=== PATIENT | male | born 1965 | race African-American/Black ===

== ENCOUNTER 2017-11-01 23:38 | Emergency (ER) | payer SELFPAY ==
[~2017-11-01] VITALS: Ht 185.4 cm; Wt 82.0 kg
[2017-11-02 01:25] LABS: BASOPHILS % 0.8 % (0.0-2.0); CHLORIDE 111 mEq/L (98-107); EOSINOPHILS % 0.7 % (0.0-5.0); HEMATOCRIT. 25.6 % (42.0-52.0); HEMOGLOBIN. 8.7 g/dL (14.0-18.0); LYMPHOCYTES % 18.1 % (20.0-50.0); MEAN CORPUSCULAR HEMOGLOBIN 34.2 pg (28.0-32.0); MEAN CORPUSCULAR VOLUME 100.4 fL (80.0-94.0); MEAN PLATELET VOLUME 6.5 fl (7.4-10.4); NEUTROPHILS % 75.4 % (40.0-76.0); PLATELET 282 x1000/uL (130-400); RED BLOOD CELL COUNT 2.55 mill/uL (4.7-6.1); RED CELL DISTRIBUTION WIDTH 13.3 % (11.6-14.6)
[2017-11-02 02:57] VITALS: BP 154/79
== END 2017-11-02 02:58 | disposition home or self-care (01) ==
LOC: ER 23:38
DX: E11.649 Type 2 diabetes mellitus with hypoglycemia without coma (principal)
CPT/HCPCS: 36415; 71045; 80053; 82962; 84484; 85025; 93005; 99285; Z7610

== ENCOUNTER 2018-10-07 23:41 | Inpatient (IN) | payer OTHER ==
[~2018-10-07] VITALS: Ht 188 cm; Wt 90.7 kg
[2018-10-08] MEDS ORDERED: ASPIRIN 81MG TABLET PO ONE
[2018-10-08] MEDS ORDERED: ONDANSETRON HCL 4MG/2ML INJ IV ONE (00:15)
[2018-10-08] MEDS ORDERED: MORPHINE SULFATE 4 MG/ML CPJ (NOT FOR IM USE) IV ONE (00:15)
[2018-10-08 00:52] LABS: BASOPHILS % 1.3 % (0.0-2.0); CHLORIDE 99 mEq/L (98-107); EOSINOPHILS % 0.3 % (0.0-5.0); HEMATOCRIT. 28.7 % (42.0-52.0); LYMPHOCYTES % 18.8 % (20.0-50.0); MEAN CORPUSCULAR HEMOGLOBIN 34.8 pg (28.0-32.0); MEAN CORPUSCULAR VOLUME 99.9 fL (80.0-94.0); MEAN PLATELET VOLUME 6.9 fl (7.4-10.4); MONOCYTES % 5.9 % (2.0-8.0); NEUTROPHILS % 73.7 % (40.0-76.0); PLATELET 412 x1000/uL (130-400); RED BLOOD CELL COUNT 2.87 mill/uL (4.7-6.1); RED CELL DISTRIBUTION WIDTH 12.3 % (11.6-14.6)
[2018-10-08] MEDS ORDERED: CLONIDINE 0.1MG TABLET PO ONE (04:30)
[2018-10-08] MEDS ORDERED: ONDANSETRON HCL 4MG/2ML INJ IV PRN (05:15)
[2018-10-08] MEDS ORDERED: CLONIDINE 0.1MG TABLET PO PRN (05:15)
[2018-10-08] MEDS ORDERED: DIPHENHYDRAMINE 50MG/ML VIAL IV PRN (05:15)
[2018-10-08] MEDS ORDERED: IPRATROPIUM/ALBUTEROL 0.5-3(2.5)MG/3ML NEB INH PRN (05:15)
[2018-10-08] MEDS ORDERED: ACETAMINOPHEN 325MG TABLET PO PRN (05:15)
[2018-10-08] MEDS ORDERED: MAGNESIUM/ALUMINUM HYDROXIDE/SIMETHICONE 30ML UDC PO PRN (05:15)
[2018-10-08] MEDS ORDERED: GUAIFENESIN 200MG/10ML SUGAR FREE UDC PO PRN (05:15)
[2018-10-08] MEDS ORDERED: SODIUM CHLORIDE 0.9% 1,000 ML IV ONE (08:14)
[2018-10-08] MEDS: LISINOPRIL 10MG TABLET PO SCH ×2 (09:51→21:12)
[2018-10-08] MEDS ORDERED: HYDRALAZINE 20MG/ML VIAL IV PRN (09:51)
[2018-10-08] MEDS ORDERED: ENOXAPARIN 30MG/0.3ML SYR SUBCUT ONE (09:53)
[2018-10-08] MEDS ORDERED: INSULIN LISPRO 100 UNITS/ML SUBCUT NR (10:20)
[2018-10-08] MEDS ORDERED: INSULIN GLARGINE UD 100 UNITS/ML SYR SUBCUT NR (10:45)
[2018-10-08] MEDS: AMLODIPINE 5MG TABLET PO SCH ×2 (10:49→21:12)
[2018-10-08] MEDS: ASPIRIN 81MG EC TABLET PO SCH (10:49)
[2018-10-08 11:29] LABS: CREATINE KINASE 497 IU/L (39-308)
[2018-10-08 14:09] LABS: T4 FREE 0.93 ng/dL (0.76-1.46)
[2018-10-08] MEDS ORDERED: INSULIN LISPRO 100 UNITS/ML SUBCUT ONE (16:00)
[2018-10-08 17:43] VITALS: BP 142/99
[2018-10-08] MEDS ORDERED: ASPI-1393 MT (18:30)
[2018-10-08] MEDS ORDERED: LEVVL SQ (18:30)
[2018-10-08] MEDS ORDERED: INSNPH SUBCUT (18:30)
[2018-10-08] MEDS ORDERED: LISI-186 MT (18:30)
[2018-10-08] MEDS ORDERED: HYDROCODONE/ACETAMINOPHEN 10/325MG TABLET PO PRN (19:00)
[2018-10-08] MEDS ORDERED: DEXTROSE 50% WATER 50ML SYRINGE IV PRN (19:00)
[2018-10-08 20:00] VITALS: BP 123/78
[2018-10-08] MEDS ORDERED: TEMAZEPAM 15MG CAPSULE PO PRN (20:30)
[2018-10-08] MEDS: INSULIN LISPRO 100 UNITS/ML SUBCUT SCH (21:00)
[2018-10-08] MEDS ORDERED: INSULIN LISPRO 100 UNITS/ML SUBCUT SCH (21:00)
[2018-10-08] MEDS: BLOOD SUGAR DIAGNOSTIC STRIP TEST SCH (21:12)
[2018-10-08] MEDS: SODIUM CHLORIDE 0.9% INJ 3ML FLUSH IVF SCH (21:12)
[2018-10-08] MEDS: INSULIN GLARGINE UD 100 UNITS/ML SYR SUBCUT SCH (21:31)
[2018-10-09] MEDS: INSULIN LISPRO 100 UNITS/ML SUBCUT SCH ×4 (06:56→21:00)
[2018-10-09] MEDS: BLOOD SUGAR DIAGNOSTIC STRIP TEST SCH ×4 (06:56→21:05)
[2018-10-09] MEDS: SODIUM CHLORIDE 0.9% INJ 3ML FLUSH IVF SCH ×3 (06:56→21:05)
[2018-10-09 08:00] VITALS: BP 135/81
[2018-10-09] MEDS ORDERED: KETOROLAC 30MG/ML VIAL IV ONE (08:15)
[2018-10-09] MEDS: ASPIRIN 81MG EC TABLET PO SCH (08:30)
[2018-10-09] MEDS ORDERED: NITROGLYCERIN OINT 1GM/INCH UDPKT TD NR (08:30)
[2018-10-09] MEDS: AMLODIPINE 5MG TABLET PO SCH ×2 (08:30→21:31)
[2018-10-09] MEDS: LISINOPRIL 10MG TABLET PO SCH ×2 (08:31→21:31)
[2018-10-09] MEDS: ENOXAPARIN 30MG/0.3ML SYR SUBCUT SCH (08:32)
[2018-10-09] MEDS ORDERED: KETOROLAC 15MG/ML VIAL IV NR (08:38)
[2018-10-09] MEDS ORDERED: FAMOTIDINE 20MG/2ML VIAL IV SCH ×2 (09:00)
[2018-10-09 09:29] LABS: CREATINE KINASE MB FRACTION 1.3 ng/mL (0.5-3.6)
[2018-10-09] MEDS: INSULIN GLARGINE UD 100 UNITS/ML SYR SUBCUT SCH ×2 (10:40→21:06)
[2018-10-09] MEDS ORDERED: ENOXAPARIN 30MG/0.3ML SYR SUBCUT SCH (11:00)
[2018-10-09 15:30] LABS: BASOPHILS % 0.4 % (0.0-2.0); EOSINOPHILS % 0.4 % (0.0-5.0); HEMATOCRIT. 28.5 % (42.0-52.0); HEMOGLOBIN. 9.5 g/dL (14.0-18.0); LYMPHOCYTES % 34.2 % (20.0-50.0); MEAN CORPUSCULAR VOLUME 101.7 fL (80.0-94.0); MONOCYTES % 5.3 % (2.0-8.0); NEUTROPHILS % 59.7 % (40.0-76.0); PLATELET 354 x1000/uL (130-400); RED CELL DISTRIBUTION WIDTH 12.5 % (11.6-14.6)
[2018-10-09 16:00] VITALS: BP 133/75
[2018-10-09] MEDS: SUCRALFATE 1 G/10 ML UDC PO SCH ×2 (16:29→21:05)
[2018-10-09] MEDS: PANTOPRAZOLE 40MG DR TABLET PO SCH (16:29)
[2018-10-09 17:11] LABS: ANTI-NUCLEAR ANTIBODIES DIRECT Negative (Negative)
[2018-10-09] MEDS ORDERED: KETOROLAC 30MG/ML VIAL IV PRN (19:15)
[2018-10-09 20:00] VITALS: BP 141/93
[2018-10-10 04:00] VITALS: BP 135/87
[2018-10-10] MEDS: SODIUM CHLORIDE 0.9% INJ 3ML FLUSH IVF SCH ×2 (05:55→14:57)
[2018-10-10] MEDS: BLOOD SUGAR DIAGNOSTIC STRIP TEST SCH ×3 (05:55→16:58)
[2018-10-10] MEDS: SUCRALFATE 1 G/10 ML UDC PO SCH ×3 (05:55→17:13)
[2018-10-10 07:11] LABS: BASOPHILS % 0.3 % (0.0-2.0); EOSINOPHILS % 1.3 % (0.0-5.0); HEMOGLOBIN. 9.2 g/dL (14.0-18.0); LYMPHOCYTES % 55.1 % (20.0-50.0); MEAN CORPUSCULAR HEMOGLOBIN 34.5 pg (28.0-32.0); MEAN CORPUSCULAR VOLUME 101.3 fL (80.0-94.0); MEAN PLATELET VOLUME 6.9 fl (7.4-10.4); MONOCYTES % 7.6 % (2.0-8.0); NEUTROPHILS % 35.7 % (40.0-76.0); PLATELET 328 x1000/uL (130-400); RED BLOOD CELL COUNT 2.66 mill/uL (4.7-6.1); RED CELL DISTRIBUTION WIDTH 12.6 % (11.6-14.6)
[2018-10-10] MEDS: INSULIN LISPRO 100 UNITS/ML SUBCUT SCH ×3 (07:15→17:15)
[2018-10-10 07:16] LABS: COMPLEMENT C3 150 mg/dL (82-167)
[2018-10-10 08:00] VITALS: BP 133/76
[2018-10-10] MEDS ORDERED: REGADENOSON 0.4 MG/5 ML IV SCH (08:15)
[2018-10-10] MEDS ORDERED: REGADENOSON 0.4 MG/5 ML IV ONE (09:52)
[2018-10-10] MEDS: ASPIRIN 81MG EC TABLET PO SCH (11:09)
[2018-10-10] MEDS: LISINOPRIL 10MG TABLET PO SCH (11:09)
[2018-10-10] MEDS: AMLODIPINE 5MG TABLET PO SCH (11:09)
[2018-10-10] MEDS: ENOXAPARIN 30MG/0.3ML SYR SUBCUT SCH (11:10)
[2018-10-10] MEDS: PANTOPRAZOLE 40MG DR TABLET PO SCH (11:10)
[2018-10-10] MEDS: INSULIN GLARGINE UD 100 UNITS/ML SYR SUBCUT SCH (11:42)
[2018-10-10 12:00] VITALS: BP 135/82
[2018-10-10 16:00] VITALS: BP 136/81
[2018-10-10 17:53] VITALS: BP 135/80
[2018-10-11] MEDS ORDERED: FAMOTIDINE 20MG TABLET PO SCH (09:00)
== END 2018-10-10 19:01 | disposition home or self-care (01) | DRG 469 ==
LOC: ER 23:41 → 5WST 10-08 02:32 → EDBEDREQTM 10-08 02:35 → EDBEDREQ 10-08 02:35 → CANRESERV 10-08 12:57 → ENRESERV 10-08 12:57
PROVIDERS: ADMIT Internal Medicine; ATTEND Internal Medicine
DX: N17.9 Acute kidney failure, unspecified (principal); E11.22 Type 2 diabetes mellitus with diabetic chronic kidney disease; E44.0 Moderate protein-calorie malnutrition; E11.319 Type 2 diabetes mellitus with unspecified diabetic retinopathy without macular edema; E78.00 Pure hypercholesterolemia, unspecified; R07.9 Chest pain, unspecified; I12.9 Hypertensive chronic kidney disease with stage 1 through stage 4 chronic kidney disease, or unspecified chronic kidney disease; N18.9 Chronic kidney disease, unspecified; R07.89 Other chest pain; K21.9 Gastro-esophageal reflux disease without esophagitis; E78.5 Hyperlipidemia, unspecified; D63.1 Anemia in chronic kidney disease; Z79.4 Long term (current) use of insulin; Z83.3 Family history of diabetes mellitus; Z82.49 Family history of ischemic heart disease and other diseases of the circulatory system; Z84.1 Family history of disorders of kidney and ureter; Z68.25 Body mass index [BMI] 25.0-25.9, adult
CPT/HCPCS: 36415; 71045; 76770; 78452; 78582; 80048; 80061; 82550; 82553; 82962; 83036; 83880; 84439; 84443; 84484; 85379; 86038; 86160; 93005; 93017; 93306; 93970; 96374; 96375; 99285; A9500; A9558; J1650; J1815; J1885; J2270; J2405; J2785; J3490; J7030

== ENCOUNTER 2018-11-08 19:57 | Inpatient (IN) | payer OTHER ==
[~2018-11-08] VITALS: Ht 193 cm; Wt 75.3 kg
[~2018-11-08 19:57] MED LIST: ASPI-1393 MT; INSNPH SUBCUT; LEVVL SQ; LISI-186 MT
[2018-11-08] MEDS ORDERED: CALCIUM GLUCONATE 100MG/ML 10ML VIAL IV ONE (21:15)
[2018-11-08 21:38] LABS: BASOPHILS % 1.6 % (0.0-2.0); EOSINOPHILS % 1.4 % (0.0-5.0); HEMATOCRIT. 23.2 % (42.0-52.0); HEMOGLOBIN. 7.9 g/dL (14.0-18.0); LYMPHOCYTES % 31.5 % (20.0-50.0); MEAN CORPUSCULAR HEMOGLOBIN 35.8 pg (28.0-32.0); MEAN CORPUSCULAR VOLUME 104.9 fL (80.0-94.0); MEAN PLATELET VOLUME 6.2 fl (7.4-10.4); MONOCYTES % 6.2 % (2.0-8.0); NEUTROPHILS % 59.3 % (40.0-76.0); PLATELET 342 x1000/uL (130-400); RED BLOOD CELL COUNT 2.21 mill/uL (4.7-6.1); RED CELL DISTRIBUTION WIDTH 13.9 % (11.6-14.6)
[2018-11-08 21:41] LABS: CHLORIDE 118 mEq/L (98-107)
[2018-11-08] MEDS ORDERED: DEXTROSE 50% WATER 50ML SYRINGE IV ONE ×3 (21:45→23:30)
[2018-11-08] MEDS ORDERED: INSULIN REGULAR (HUMULIN R) 300UNITS/3ML IV ONE (21:45)
[2018-11-08] MEDS ORDERED: SODIUM BICARBONATE 8.4% 1 MEQ/ML 50ML SYR IV ONE (21:45)
[2018-11-09] VITALS (10 sets, daily range): BP systolic 136–215; BP diastolic 64–122
[2018-11-09] MEDS ORDERED: DEXTROSE 50% WATER 50ML SYRINGE IV ONE ×2 (00:30)
[2018-11-09] MEDS ORDERED: GUAIFENESIN 200MG/10ML SUGAR FREE UDC PO PRN (04:45)
[2018-11-09] MEDS ORDERED: ONDANSETRON HCL 4MG/2ML INJ IV PRN (04:45)
[2018-11-09] MEDS ORDERED: MORPHINE SULFATE 2 MG/ML CPJ (NOT FOR IM USE) IV PRN (04:45)
[2018-11-09] MEDS ORDERED: DOCUSATE SODIUM 100MG CAPSULE PO PRN (04:45)
[2018-11-09] MEDS ORDERED: HYDROCODONE/ACETAMINOPHEN 5/325MG TABLET PO PRN (04:45)
[2018-11-09] MEDS ORDERED: ACETAMINOPHEN 325MG TABLET PO PRN (04:45)
[2018-11-09] MEDS: CLONIDINE 0.1MG TABLET PO PRN ×2 (05:17→23:00)
[2018-11-09] MEDS: DEXT 5%/0.45% NACL 1000ML 1,000 ML IV SCH ×2 (05:17→21:50)
[2018-11-09] MEDS ORDERED: SODIUM POLYSTYRENE SULFONATE 15 G/60 ML BOT PO SCH (06:00)
[2018-11-09] MEDS ORDERED: DEXTROSE 50% WATER 50ML SYRINGE IV PRN ×2 (06:15→07:45)
[2018-11-09] MEDS: BLOOD SUGAR DIAGNOSTIC STRIP TEST SCH ×4 (07:06→21:49)
[2018-11-09] MEDS: AMLODIPINE 10MG TABLET PO SCH (08:40)
[2018-11-09] MEDS: INSULIN LISPRO 100 UNITS/ML SUBCUT SCH ×4 (08:43→21:49)
[2018-11-09 09:25] LABS: CHLORIDE 116 mEq/L (98-107)
[2018-11-09 09:40] LABS: CREATINE KINASE 230 IU/L (39-308)
[2018-11-09 09:44] LABS: CREATINE KINASE MB FRACTION 3.1 ng/mL (0.5-3.6)
[2018-11-09] MEDS: HYDRALAZINE HCL 10MG TABLET PO SCH ×3 (11:06→21:49)
[2018-11-09] MEDS ORDERED: BLOOD SUGAR DIAGNOSTIC STRIP TEST SCH (12:30)
[2018-11-09] MEDS ORDERED: INSULIN REGULAR (HUMULIN R) 300UNITS/3ML IV NR (13:00)
[2018-11-09] MEDS ORDERED: DEXTROSE 50% WATER 50ML SYRINGE IV NR (13:00)
[2018-11-09] MEDS ORDERED: SODIUM POLYSTYRENE SULFONATE 15 G/60 ML BOT PO NR (13:30)
[2018-11-09] MEDS ORDERED: INSULIN REGULAR (HUMULIN R) UD 100 UNITS/ML SYR IV NR (14:41)
[2018-11-09 15:08] LABS: CLARITY URINE CLEAR (CLEAR); COLOR URINE YELLOW (YELLOW); KETONES URINE NEGATIVE (NEGATIVE); LEUKOCYTE ESTERASE URINE NEGATIVE (NEGATIVE); NITRITE URINE NEGATIVE (NEGATIVE); OCCULT BLOOD URINE TRACE (NEGATIVE); PROTEIN URINE 2+ (NEGATIVE); SPECIFIC GRAVITY URINE 1.014 (1.005-1.030); UROBILINOGEN URINE 0.2 E.U./dL (0.2-1.0)
[2018-11-09 15:31] LABS: CREATINE KINASE MB FRACTION 2.3 ng/mL (0.5-3.6)
[2018-11-09 15:38] LABS: *AMPHETAMINES SCREEN URINE NEGATIVE (NEGATIVE); *BARBITURATES SCREEN URINE NEGATIVE (NEGATIVE)
[2018-11-09 15:39] LABS: *BENZODIAZEPINES SCREEN URINE NEGATIVE (NEGATIVE); *COCAINE SCREEN URINE NEGATIVE (NEGATIVE); CANNABINOID URINE SCREEN PRESUMTIVE POSITIVE (NEGATIVE); METHADONE URINE SCREEN NEGATIVE (NEGATIVE); OPIATES URINE SCREEN NEGATIVE (NEGATIVE); PHENCYCLIDINE URINE SCREEN NEGATIVE (NEGATIVE)
[2018-11-09] MEDS ORDERED: INSULIN GLARGINE UD 100 UNITS/ML SYR SUBCUT NR (22:30)
[2018-11-10] VITALS (10 sets, daily range): BP systolic 116–170; BP diastolic 72–98
[2018-11-10] MEDS: HYDRALAZINE HCL 10MG TABLET PO SCH ×2 (05:39→13:45)
[2018-11-10] MEDS: BLOOD SUGAR DIAGNOSTIC STRIP TEST SCH ×2 (06:34→12:30)
[2018-11-10 07:10] LABS: BASOPHILS % 1.1 % (0.0-2.0); EOSINOPHILS % 1.6 % (0.0-5.0); HEMATOCRIT. 23.7 % (42.0-52.0); HEMOGLOBIN. 7.9 g/dL (14.0-18.0); LYMPHOCYTES % 35.6 % (20.0-50.0); MEAN CORPUSCULAR HEMOGLOBIN 34.6 pg (28.0-32.0); MEAN CORPUSCULAR VOLUME 103.4 fL (80.0-94.0); MEAN PLATELET VOLUME 6.6 fl (7.4-10.4); MONOCYTES % 7.2 % (2.0-8.0); NEUTROPHILS % 54.5 % (40.0-76.0); PLATELET 358 x1000/uL (130-400); RED BLOOD CELL COUNT 2.29 mill/uL (4.7-6.1); RED CELL DISTRIBUTION WIDTH 13.7 % (11.6-14.6)
[2018-11-10] MEDS: INSULIN LISPRO 100 UNITS/ML SUBCUT SCH ×4 (07:30→13:38)
[2018-11-10 07:38] LABS: CHLORIDE 116 mEq/L (98-107)
[2018-11-10 07:51] LABS: HDL CHOLESTEROL 73 mg/dL (40-59)
[2018-11-10 07:52] LABS: LDL CHOLESTEROL 108 mg/dL (5-100)
[2018-11-10] MEDS: AMLODIPINE 10MG TABLET PO SCH (09:00)
[2018-11-10] MEDS ORDERED: INSULIN LISPRO 100 UNITS/ML SUBCUT SCH (09:00)
[2018-11-10] MEDS: DEXT 5%/0.45% NACL 1000ML 1,000 ML IV SCH (14:21)
== END 2018-11-10 16:30 | disposition home or self-care (01) | DRG 683 ==
LOC: ER 19:57 → 5EST 11-09 01:13 → EDBEDREQDT 11-09 01:16 → EDBEDREQSVC 11-09 01:16 → EDBEDREQ 11-09 01:16 → EDBEDREQTM 11-09 01:16 → ENRESERV 11-09 02:20 → 5EST 11-09 03:58
PROVIDERS: ADMIT Hospitalist; ATTEND Hospitalist
DX: N17.9 Acute kidney failure, unspecified (principal); E87.2 Acidosis; I12.9 Hypertensive chronic kidney disease with stage 1 through stage 4 chronic kidney disease, or unspecified chronic kidney disease; E87.5 Hyperkalemia; N18.4 Chronic kidney disease, stage 4 (severe); E11.22 Type 2 diabetes mellitus with diabetic chronic kidney disease; E11.649 Type 2 diabetes mellitus with hypoglycemia without coma; E88.81 Metabolic syndrome and other insulin resistance; I51.7 Cardiomegaly; R74.0 Nonspecific elevation of levels of transaminase and lactic acid dehydrogenase [LDH]; Z79.899 Other long term (current) drug therapy
CPT/HCPCS: 36415; 71045; 80061; 80305; 82550; 82553; 82962; 83880; 84132; 84484; 93005; 93970; 96374; 96375; 96376; 99291; J0610; J1815; J3490

== ENCOUNTER 2019-03-13 13:02 | Inpatient (IN) | payer OTHER ==
[~2019-03-13] VITALS: Ht 193 cm; Wt 72.6 kg
[2019-03-13] MEDS ORDERED: SODIUM CHLORIDE 0.9% 1,000 ML IV ONE (13:35)
[2019-03-13 14:41] LABS: CHLORIDE 105 mEq/L (98-107)
[2019-03-13 14:42] LABS: BASOPHILS % 0.7 % (0.0-2.0); EOSINOPHILS % 1.1 % (0.0-5.0); HEMOGLOBIN. 8.6 g/dL (14.0-18.0); LYMPHOCYTES % 31.1 % (20.0-50.0); MEAN CORPUSCULAR HEMOGLOBIN 34.9 pg (28.0-32.0); MEAN PLATELET VOLUME 7.3 fl (7.4-10.4); MONOCYTES % 4.9 % (2.0-8.0); NEUTROPHILS % 62.2 % (40.0-76.0); PLATELET 265 x1000/uL (130-400); RED BLOOD CELL COUNT 2.46 mill/uL (4.7-6.1); RED CELL DISTRIBUTION WIDTH 13.8 % (11.6-14.6)
[2019-03-13 14:46] LABS: AMYLASE 77 IU/L (25-115)
[2019-03-13 14:56] LABS: BETA HYDROXYBUTYRATE 0.1 mMol/L (0.0-0.3)
[2019-03-13] MEDS ORDERED: ASPIRIN 325MG EC TABLET PO ONE (15:15)
[2019-03-13] MEDS ORDERED: INSULIN REGULAR (HUMULIN R) UD 100 UNITS/ML SYR SUBCUT ONE (15:15)
[2019-03-13 15:24] LABS: BG BASE EXCESS -5.5 mmol/L (-2.0-2.0); BG CARBOXYHEMOGLOBIN 0.1 % (0.5-1.5); BG FRACTION INSPIRED OXYGEN 21; BG HCO3 ACT 20.2 mmol/L (22.0-26.0); BG METHEMOGLOBIN 0.1 % (0.0-1.5); BG OXYHEMOGLOBIN 91.8 % (94.0-97.0); BG PCO2 40.1 mmHg (35.0-45.0); BG PH 7.319 (7.350-7.450); BG PO2 65.7 mmHg (75.0-100.0); BG SAMPLE SITE RIGHT BRACHIAL; BG TOTAL HEMOGLOBIN 9.2 g/dL (12.0-18.0); BG VENT MODE ROOM AIR
[2019-03-13 15:32] LABS: CLARITY URINE CLEAR (CLEAR); COLOR URINE YELLOW (YELLOW); KETONES URINE NEGATIVE (NEGATIVE); LEUKOCYTE ESTERASE URINE NEGATIVE (NEGATIVE); NITRITE URINE NEGATIVE (NEGATIVE); OCCULT BLOOD URINE TRACE (NEGATIVE); PROTEIN URINE 2+ (NEGATIVE); SPECIFIC GRAVITY URINE 1.018 (1.005-1.030); UROBILINOGEN URINE 0.2 E.U./dL (0.2-1.0)
[2019-03-13 15:42] LABS: PROTHROMBIN TIME 9.8 sec (9.6-11.0)
[2019-03-13 15:43] LABS: ETHANOL BLOOD < 10 mg/dL
[2019-03-13] MEDS ORDERED: TRAMADOL 50MG TABLET PO PRN (18:00)
[2019-03-13] MEDS ORDERED: DEXTROSE 50% WATER 50ML SYRINGE IV PRN (18:00)
[2019-03-13] MEDS ORDERED: LORAZEPAM 0.5MG TABLET PO PRN (18:00)
[2019-03-13] MEDS ORDERED: IPRATROPIUM/ALBUTEROL 0.5-3(2.5)MG/3ML NEB NEB PRN (18:00)
[2019-03-13] MEDS ORDERED: MAGNESIUM/ALUMINUM HYDROXIDE/SIMETHICONE 30ML UDC PO PRN (18:00)
[2019-03-13] MEDS ORDERED: DOCUSATE SODIUM 100MG CAPSULE PO PRN (18:00)
[2019-03-13] MEDS ORDERED: ONDANSETRON HCL 4MG/2ML INJ IV PRN (18:00)
[2019-03-13] MEDS ORDERED: ACETAMINOPHEN 325MG TABLET PO PRN (18:00)
[2019-03-13] MEDS ORDERED: ENOXAPARIN 40MG/0.4ML SYR SUBCUT SCH (18:00)
[2019-03-13] MEDS ORDERED: GUAIFENESIN 200MG/10ML SUGAR FREE UDC PO PRN (18:00)
[2019-03-13] MEDS ORDERED: NITROGLYCERIN 0.4MG TABLET SL SL PRN (18:00)
[2019-03-13 19:48] LABS: T4 FREE 0.79 ng/dL (0.76-1.46)
[2019-03-13 20:11] LABS: HEPATITIS B SURFACE ANTIGEN NEGATIVE; VITAMIN B12 SERUM >2000 pg/mL pg/mL (211-911)
[2019-03-13 20:40] LABS: HEPATITIS A AB IGM NEGATIVE (NEGATIVE)
[2019-03-13] MEDS: CLONIDINE 0.1MG TABLET PO PRN (21:50)
[2019-03-13] MEDS ORDERED: ZOLPIDEM TARTRATE 5MG TABLET PO PRN (23:14)
[2019-03-13] MEDS ORDERED: SODIUM CHLORIDE 0.9% 1,000 ML IV SCH (23:16)
[2019-03-14] VITALS: BP 176/104
[2019-03-14] MEDS ORDERED: INSULIN GLARGINE UD 100 UNITS/ML SYR SUBCUT SCH
[2019-03-14] MEDS ORDERED: METOPROLOL TARTRATE 25MG TABLET PO SCH
[2019-03-14] MEDS: BLOOD SUGAR DIAGNOSTIC STRIP TEST SCH ×2 (00:05→06:06)
[2019-03-14] MEDS ORDERED: LEVVL SQ (01:22)
[2019-03-14 04:00] VITALS: BP 177/111
[2019-03-14] MEDS: CLONIDINE 0.1MG TABLET PO PRN (06:13)
[2019-03-14] MEDS: INSULIN LISPRO 100 UNITS/ML SUBCUT SCH ×2 (06:20)
[2019-03-14 07:18] LABS: BASOPHILS % 0.8 % (0.0-2.0); EOSINOPHILS % 2.8 % (0.0-5.0); HEMATOCRIT. 26.7 % (42.0-52.0); HEMOGLOBIN. 8.9 g/dL (14.0-18.0); LYMPHOCYTES % 38.6 % (20.0-50.0); MEAN CORPUSCULAR HEMOGLOBIN 34.9 pg (28.0-32.0); MEAN CORPUSCULAR VOLUME 104.7 fL (80.0-94.0); MEAN PLATELET VOLUME 7.5 fl (7.4-10.4); MONOCYTES % 4.8 % (2.0-8.0); PLATELET 263 x1000/uL (130-400); RED BLOOD CELL COUNT 2.55 mill/uL (4.7-6.1)
[2019-03-14] MEDS ORDERED: INSULIN LISPRO 100 UNITS/ML SUBCUT SCH (07:40)
[2019-03-14 07:44] LABS: CHLORIDE 109 mEq/L (98-107)
[2019-03-14 08:00] VITALS: BP 142/98
[2019-03-14] MEDS ORDERED: ENOXAPARIN 80MG/0.8ML SYR SUBCUT SCH (08:00)
[2019-03-14] MEDS ORDERED: ENOXAPARIN 30MG/0.3ML SYR SUBCUT SCH (09:00)
[2019-03-14] MEDS ORDERED: ASPIRIN 325MG EC TABLET PO SCH (09:00)
[2019-03-14] MEDS ORDERED: ASCORBIC ACID 500 MG TABLET PO SCH (09:00)
[2019-03-14] MEDS ORDERED: FAMOTIDINE 20MG TABLET PO SCH ×2 (09:00)
[2019-03-14 14:21] LABS: *AMPHETAMINES SCREEN URINE NEGATIVE (NEGATIVE); *BARBITURATES SCREEN URINE NEGATIVE (NEGATIVE); *BENZODIAZEPINES SCREEN URINE NEGATIVE (NEGATIVE); *COCAINE SCREEN URINE NEGATIVE (NEGATIVE)
[2019-03-14 14:22] LABS: CANNABINOID URINE SCREEN PRESUMTIVE POSITIVE (NEGATIVE); METHADONE URINE SCREEN NEGATIVE (NEGATIVE); OPIATES URINE SCREEN NEGATIVE (NEGATIVE); PHENCYCLIDINE URINE SCREEN NEGATIVE (NEGATIVE)
== END 2019-03-14 08:50 | disposition left against medical advice (07) | DRG 872 ==
LOC: ER 13:02 → 7WST 15:51 → EDBEDREQ 16:12 → EDBEDREQTM 16:33 → SUPCPDRO 18:15 → ENRESERV 21:34
PROVIDERS: ADMIT Internal Medicine; ATTEND Internal Medicine
DX: A41.9 Sepsis, unspecified organism (principal); N17.9 Acute kidney failure, unspecified; E87.1 Hypo-osmolality and hyponatremia; E10.22 Type 1 diabetes mellitus with diabetic chronic kidney disease; N18.9 Chronic kidney disease, unspecified; I12.9 Hypertensive chronic kidney disease with stage 1 through stage 4 chronic kidney disease, or unspecified chronic kidney disease; E87.5 Hyperkalemia; Z53.29 Procedure and treatment not carried out because of patient's decision for other reasons; Z91.14 Patient's other noncompliance with medication regimen; Z79.899 Other long term (current) drug therapy; Z79.82 Long term (current) use of aspirin; Z79.4 Long term (current) use of insulin
CPT/HCPCS: 36415; 36600; 71045; 76705; 80061; 80305; 80307; 80320; 81003; 82010; 82150; 82375; 82607; 82746; 82805; 82962; 83036; 83540; 83550; 84439; 84443; 84484; 86705; 86709; 86803; 87340; 93005; 93970; 96360; 96372; 99285; J1815; J7030; G0480

== ENCOUNTER 2019-04-01 14:27 | Inpatient (IN) | payer OTHER ==
[~2019-04-01] VITALS: Ht 193 cm; Wt 83.9 kg
[~2019-04-01 14:27] MED LIST changes: -ASPI-1393 MT; +ASPI-1393 PO
[2019-04-01] MEDS ORDERED: SODIUM CHLORIDE 0.9% 1,000 ML IV ONE (15:42)
[2019-04-01] MEDS ORDERED: AMLODIPINE 5MG TABLET PO ONE (15:45)
[2019-04-01 15:59] LABS: BASOPHILS % 1.9 % (0.0-2.0); EOSINOPHILS % 0.7 % (0.0-5.0); HEMATOCRIT. 22.7 % (42.0-52.0); HEMOGLOBIN. 7.4 g/dL (14.0-18.0); LYMPHOCYTES % 25.5 % (20.0-50.0); MEAN CORPUSCULAR HEMOGLOBIN 35.7 pg (28.0-32.0); MEAN CORPUSCULAR VOLUME 108.7 fL (80.0-94.0); MEAN PLATELET VOLUME 7.2 fl (7.4-10.4); MONOCYTES % 6.3 % (2.0-8.0); NEUTROPHILS % 65.6 % (40.0-76.0); PLATELET 289 x1000/uL (130-400); RED BLOOD CELL COUNT 2.08 mill/uL (4.7-6.1); RED CELL DISTRIBUTION WIDTH 14.1 % (11.6-14.6)
[2019-04-01 16:02] LABS: CHLORIDE 111 mEq/L (98-107)
[2019-04-01] MEDS ORDERED: CALCIUM GLUCONATE 1,000 MG in DEXT 5% WATER 100 ML IV ONE (16:30)
[2019-04-01] MEDS ORDERED: DEXTROSE 50% WATER 50ML SYRINGE IV ONE (16:30)
[2019-04-01] MEDS ORDERED: ALBUTEROL (0.083%) 2.5MG/3ML NEB HHN ONE (16:30)
[2019-04-01] MEDS ORDERED: INSULIN REGULAR (HUMULIN R) 300UNITS/3ML IV ONE (16:30)
[2019-04-01] MEDS ORDERED: SODIUM BICARBONATE 8.4% 1 MEQ/ML 50ML SYR IV ONE (16:30)
[2019-04-01] MEDS ORDERED: LORAZEPAM 0.5MG TABLET PO PRN (17:30)
[2019-04-01] MEDS ORDERED: ACETAMINOPHEN 325MG TABLET PO PRN (17:30)
[2019-04-01] MEDS ORDERED: ONDANSETRON HCL 4MG/2ML INJ IV PRN (17:30)
[2019-04-01] MEDS ORDERED: ENOXAPARIN 80MG/0.8ML SYR SUBCUT ONE (17:30)
[2019-04-01] MEDS ORDERED: IPRATROPIUM/ALBUTEROL 0.5-3(2.5)MG/3ML NEB NEB PRN (17:30)
[2019-04-01] MEDS ORDERED: GUAIFENESIN 200MG/10ML SUGAR FREE UDC PO PRN (17:30)
[2019-04-01] MEDS ORDERED: NITROGLYCERIN 0.4MG TABLET SL SL PRN (17:30)
[2019-04-01] MEDS ORDERED: DOCUSATE SODIUM 100MG CAPSULE PO PRN (17:30)
[2019-04-01] MEDS ORDERED: MAGNESIUM/ALUMINUM HYDROXIDE/SIMETHICONE 30ML UDC PO PRN (17:30)
[2019-04-01] MEDS ORDERED: SODIUM POLYSTYRENE SULFONATE 15 G/60 ML BOT PO NR (17:42)
[2019-04-01] MEDS ORDERED: INSULIN REGULAR (HUMULIN R) UD 100 UNITS/ML SYR IV ONE (18:15)
[2019-04-01 18:36] LABS: *AMPHETAMINES SCREEN URINE NEGATIVE (NEGATIVE); *BARBITURATES SCREEN URINE NEGATIVE (NEGATIVE); *BENZODIAZEPINES SCREEN URINE NEGATIVE (NEGATIVE); *COCAINE SCREEN URINE NEGATIVE (NEGATIVE)
[2019-04-01 18:37] LABS: CANNABINOID URINE SCREEN PRESUMTIVE POSITIVE (NEGATIVE); METHADONE URINE SCREEN NEGATIVE (NEGATIVE); OPIATES URINE SCREEN NEGATIVE (NEGATIVE); PHENCYCLIDINE URINE SCREEN NEGATIVE (NEGATIVE)
[2019-04-01 20:05] LABS: FOLIC ACID (FOLATE) SERUM 8.4 ng/mL (>5.38)
[2019-04-01] MEDS: INSULIN LISPRO 100 UNITS/ML SUBCUT SCH ×2 (20:28)
[2019-04-01] MEDS: TRAMADOL 50MG TABLET PO PRN (20:56)
[2019-04-01] MEDS ORDERED: ZOLPIDEM TARTRATE 5MG TABLET PO PRN (21:00)
[2019-04-01 22:00] VITALS: BP 160/89
[2019-04-01 23:24] VITALS: BP 170/107
[2019-04-02] VITALS (12 sets, daily range): BP systolic 148–183; BP diastolic 75–109
[2019-04-02 00:01] LABS: CREATINE KINASE MB FRACTION 3.4 ng/mL (0.5-3.6)
[2019-04-02] MEDS: DEXTROSE 50% WATER 50ML SYRINGE IV PRN ×2 (00:02→07:01)
[2019-04-02] MEDS: BLOOD SUGAR DIAGNOSTIC STRIP TEST SCH ×5 (00:07→20:59)
[2019-04-02] MEDS: CLONIDINE 0.1MG TABLET PO PRN ×2 (01:27→17:48)
[2019-04-02] MEDS: INSULIN GLARGINE UD 100 UNITS/ML SYR SUBCUT SCH ×2 (01:28→22:44)
[2019-04-02] MEDS: TRAMADOL 50MG TABLET PO PRN (06:31)
[2019-04-02] MEDS: APIXABAN 2.5 MG TABLET PO SCH ×2 (06:39→17:48)
[2019-04-02] MEDS: INSULIN LISPRO 100 UNITS/ML SUBCUT SCH ×4 (07:20→21:02)
[2019-04-02] MEDS: METOPROLOL TARTRATE 25MG TABLET PO SCH ×2 (08:33→20:58)
[2019-04-02] MEDS ORDERED: FUROSEMIDE 40MG/4ML VIAL IVP SCH (09:00)
[2019-04-02 09:09] LABS: BASOPHILS % 1.3 % (0.0-2.0); EOSINOPHILS % 1.1 % (0.0-5.0); LYMPHOCYTES % 30.5 % (20.0-50.0); MEAN CORPUSCULAR HEMOGLOBIN 35.6 pg (28.0-32.0); MEAN CORPUSCULAR VOLUME 106.4 fL (80.0-94.0); NEUTROPHILS % 59.1 % (40.0-76.0); PLATELET 295 x1000/uL (130-400); RED BLOOD CELL COUNT 1.96 mill/uL (4.7-6.1); RED CELL DISTRIBUTION WIDTH 13.8 % (11.6-14.6)
[2019-04-02 09:21] LABS: CHLORIDE 115 mEq/L (98-107); HEMATOCRIT. 20.9 % (42.0-52.0)
[2019-04-02 09:30] LABS: CREATINE KINASE 260 IU/L (39-308)
[2019-04-02 09:33] LABS: CREATINE KINASE MB FRACTION 2.5 ng/mL (0.5-3.6)
[2019-04-02 19:10] LABS: CLARITY URINE CLEAR (CLEAR); COLOR URINE YELLOW (YELLOW); KETONES URINE NEGATIVE (NEGATIVE); LEUKOCYTE ESTERASE URINE NEGATIVE (NEGATIVE); NITRITE URINE NEGATIVE (NEGATIVE); OCCULT BLOOD URINE TRACE (NEGATIVE); PH URINE 5.5 (4.5-8.0); PROTEIN URINE 2+ (NEGATIVE); SPECIFIC GRAVITY URINE 1.011 (1.005-1.030); UROBILINOGEN URINE 0.2 E.U./dL (0.2-1.0)
[2019-04-02] MEDS ORDERED: EPOETIN ALFA 4000UNITS/ML VIAL SUBCUT SCH (21:00)
[2019-04-03] VITALS (13 sets, daily range): BP systolic 141–180; BP diastolic 54–114
[2019-04-03] MEDS: CLONIDINE 0.1MG TABLET PO PRN ×2 (01:23→11:46)
[2019-04-03] MEDS: DEXTROSE 50% WATER 50ML SYRINGE IV PRN (04:56)
[2019-04-03] MEDS: BLOOD SUGAR DIAGNOSTIC STRIP TEST SCH ×4 (06:46→21:00)
[2019-04-03] MEDS: APIXABAN 2.5 MG TABLET PO SCH ×2 (06:46→18:00)
[2019-04-03 07:07] LABS: BASOPHILS % 0.4 % (0.0-2.0); EOSINOPHILS % 1.4 % (0.0-5.0); HEMATOCRIT. 21.7 % (42.0-52.0); HEMOGLOBIN. 7.4 g/dL (14.0-18.0); LYMPHOCYTES % 28.1 % (20.0-50.0); MEAN CORPUSCULAR HEMOGLOBIN 35.9 pg (28.0-32.0); MEAN CORPUSCULAR VOLUME 105.4 fL (80.0-94.0); MEAN PLATELET VOLUME 7.2 fl (7.4-10.4); MONOCYTES % 7.8 % (2.0-8.0); NEUTROPHILS % 62.3 % (40.0-76.0); PLATELET 320 x1000/uL (130-400); RED BLOOD CELL COUNT 2.05 mill/uL (4.7-6.1); RED CELL DISTRIBUTION WIDTH 13.9 % (11.6-14.6)
[2019-04-03] MEDS: INSULIN LISPRO 100 UNITS/ML SUBCUT SCH ×4 (07:20→21:00)
[2019-04-03 07:21] LABS: PHOSPHORUS 3.9 mg/dL (2.5-4.9)
[2019-04-03] MEDS: METOPROLOL TARTRATE 25MG TABLET PO SCH ×2 (08:04→21:00)
[2019-04-03] MEDS: FUROSEMIDE 40MG TABLET PO SCH (08:04)
[2019-04-03] MEDS ORDERED: MAGNESIUM 4 G PREMIX 100 ML IV SCH (08:30)
[2019-04-03] MEDS: DEXT 5%/0.9% NACL 1,000 ML IV SCH (10:00)
[2019-04-03] MEDS ORDERED: INSULIN GLARGINE UD 100 UNITS/ML SYR SUBCUT SCH (22:00)
[2019-04-04] MEDS: DEXT 5%/0.9% NACL 1,000 ML IV SCH (04:00)
[2019-04-04 06:34] LABS: BASOPHILS % 0.8 % (0.0-2.0); HEMATOCRIT. 23.1 % (42.0-52.0); HEMOGLOBIN. 7.7 g/dL (14.0-18.0); LYMPHOCYTES % 36.8 % (20.0-50.0); MEAN CORPUSCULAR HEMOGLOBIN 34.9 pg (28.0-32.0); MEAN CORPUSCULAR VOLUME 104.5 fL (80.0-94.0); MEAN PLATELET VOLUME 6.8 fl (7.4-10.4); MONOCYTES % 7.1 % (2.0-8.0); NEUTROPHILS % 54.3 % (40.0-76.0); PLATELET 353 x1000/uL (130-400); RED BLOOD CELL COUNT 2.22 mill/uL (4.7-6.1); RED CELL DISTRIBUTION WIDTH 13.8 % (11.6-14.6)
[2019-04-04 07:03] LABS: PHOSPHORUS 3.9 mg/dL (2.5-4.9)
[2019-04-04] MEDS: BLOOD SUGAR DIAGNOSTIC STRIP TEST SCH (07:05)
[2019-04-04] MEDS: INSULIN LISPRO 100 UNITS/ML SUBCUT SCH (07:20)
[2019-04-04 08:13] VITALS: BP 138/86
[2019-04-04] MEDS: FUROSEMIDE 40MG TABLET PO SCH (08:28)
[2019-04-04] MEDS: METOPROLOL TARTRATE 25MG TABLET PO SCH (08:29)
[2019-04-04] MEDS ORDERED: DEXTROSE 50% WATER 50ML SYRINGE IV PRN (08:30)
[2019-04-04 09:37] VITALS: BP 124/76
[2019-04-04 10:00] VITALS: BP 124/86
[2019-04-04] MEDS ORDERED: INSULIN GLARGINE UD 100 UNITS/ML SYR SUBCUT SCH (10:00)
[2019-04-04] MEDS ORDERED: BLOOD SUGAR DIAGNOSTIC STRIP TEST SCH (11:50)
[2019-04-04] MEDS ORDERED: INSULIN LISPRO 100 UNITS/ML SUBCUT SCH (12:20)
== END 2019-04-04 10:56 | disposition home or self-care (01) | DRG 682 ==
LOC: ER 14:27 → 3WST 17:23 → ENRESERV 20:21
PROVIDERS: ADMIT Internal Medicine; ATTEND Internal Medicine
DX: N17.0 Acute kidney failure with tubular necrosis (principal); E11.00 Type 2 diabetes mellitus with hyperosmolarity without nonketotic hyperglycemic-hyperosmolar coma (NKHHC); E44.0 Moderate protein-calorie malnutrition; I82.502 Chronic embolism and thrombosis of unspecified deep veins of left lower extremity; N18.4 Chronic kidney disease, stage 4 (severe); E11.65 Type 2 diabetes mellitus with hyperglycemia; E83.42 Hypomagnesemia; I12.9 Hypertensive chronic kidney disease with stage 1 through stage 4 chronic kidney disease, or unspecified chronic kidney disease; E87.5 Hyperkalemia; E11.22 Type 2 diabetes mellitus with diabetic chronic kidney disease; D63.8 Anemia in other chronic diseases classified elsewhere; Z79.899 Other long term (current) drug therapy; Z79.4 Long term (current) use of insulin; Z82.49 Family history of ischemic heart disease and other diseases of the circulatory system; Z83.3 Family history of diabetes mellitus; Z68.22 Body mass index [BMI] 22.0-22.9, adult; Z79.82 Long term (current) use of aspirin; Z91.11 Patient's noncompliance with dietary regimen; Z91.14 Patient's other noncompliance with medication regimen
CPT/HCPCS: 36415; 71045; 76770; 80048; 80061; 80305; 81003; 82550; 82553; 82607; 82746; 82962; 83010; 83036; 83540; 83550; 83615; 83735; 83880; 84100; 84484; 93005; 93970; 94640; 99291; J0610; J0885; J1650; J1815; J1940; J3475; J3490; J7030; J7042; J7060; J7611

== ENCOUNTER 2019-04-08 10:19 | Inpatient (IN) | payer OTHER ==
[~2019-04-08] VITALS: Ht 193 cm; Wt 78.9 kg
[2019-04-08 12:43] LABS: BASOPHILS % 0.9 % (0.0-2.0); EOSINOPHILS % 0.7 % (0.0-5.0); LYMPHOCYTES % 16.2 % (20.0-50.0); MEAN CORPUSCULAR HEMOGLOBIN 35.6 pg (28.0-32.0); MEAN CORPUSCULAR VOLUME 110.3 fL (80.0-94.0); MONOCYTES % 4.3 % (2.0-8.0); NEUTROPHILS % 77.9 % (40.0-76.0); PLATELET 386 x1000/uL (130-400); RED BLOOD CELL COUNT 1.71 mill/uL (4.7-6.1); RED CELL DISTRIBUTION WIDTH 14.3 % (11.6-14.6)
[2019-04-08] MEDS ORDERED: ACETAMINOPHEN 325MG TABLET PO ONE (12:45)
[2019-04-08 12:47] LABS: CHLORIDE 121 mEq/L (98-107)
[2019-04-08 12:55] LABS: HEMATOCRIT. 18.9 % (42.0-52.0); HEMOGLOBIN. 6.1 g/dL (14.0-18.0)
[2019-04-08] MEDS ORDERED: MORPHINE SULFATE 4 MG/ML CPJ (NOT FOR IM USE) IV ONE (13:15)
[2019-04-08 13:16] LABS: PLATELET ESTIMATE NORMAL
[2019-04-08] MEDS ORDERED: DEXTROSE 50% WATER 50ML SYRINGE IV ONE (16:23)
[2019-04-08] MEDS: DEXTROSE 50% WATER 50ML SYRINGE IV PRN (16:28)
[2019-04-08 17:30] VITALS: BP 148/73
[2019-04-08] MEDS ORDERED: ACETAMINOPHEN 325MG TABLET PO PRN (18:00)
[2019-04-08] MEDS ORDERED: CLONIDINE 0.1MG TABLET PO PRN (18:00)
[2019-04-08] MEDS ORDERED: ONDANSETRON HCL 4MG/2ML INJ IV PRN (18:00)
[2019-04-08] MEDS ORDERED: DIPHENHYDRAMINE 50MG/ML VIAL IV PRN (18:00)
[2019-04-08] MEDS ORDERED: GUAIFENESIN 200MG/10ML SUGAR FREE UDC PO PRN (18:00)
[2019-04-08] MEDS ORDERED: SODIUM CHLORIDE 0.9% 1,000 ML IV SCH (18:00)
[2019-04-08] MEDS ORDERED: MAGNESIUM/ALUMINUM HYDROXIDE/SIMETHICONE 30ML UDC PO PRN (18:00)
[2019-04-08] MEDS ORDERED: HYDROCODONE/ACETAMINOPHEN 5/325MG TABLET PO PRN (18:00)
[2019-04-08] MEDS: INSULIN LISPRO 100 UNITS/ML SUBCUT SCH ×2 (18:50→21:00)
[2019-04-08 18:57] LABS: TOTAL IRON BINDING CAPACITY 455 ug/dL (250-450)
[2019-04-08 19:00] VITALS: BP 165/100
[2019-04-08 19:05] LABS: FOLIC ACID (FOLATE) SERUM 9.9 ng/mL (>5.38)
[2019-04-08] MEDS ORDERED: INSNOV SUBCUT (19:18)
[2019-04-08] MEDS ORDERED: ATOR-2 PO (19:20)
[2019-04-08] MEDS ORDERED: FAMO20TA8 PO (19:21)
[2019-04-08] MEDS ORDERED: FLUO10TA3 PO (19:22)
[2019-04-08] MEDS ORDERED: APIX2.5T PO (19:23)
[2019-04-08] MEDS ORDERED: METO25TA6 PO (19:25)
[2019-04-08 20:00] VITALS: BP 161/81
[2019-04-08] MEDS ORDERED: FAMOTIDINE 20MG TABLET PO SCH (21:00)
[2019-04-08] MEDS: BLOOD SUGAR DIAGNOSTIC STRIP TEST SCH (21:00)
[2019-04-08] MEDS: METOPROLOL TARTRATE 25MG TABLET PO SCH (21:00)
[2019-04-08] MEDS ORDERED: ATORVASTATIN CALCIUM 40MG TABLET PO SCH (21:00)
[2019-04-08] MEDS ORDERED: INSULIN GLARGINE UD 100 UNITS/ML SYR SUBCUT SCH (22:00)
[2019-04-09] VITALS (7 sets, daily range): BP systolic 155–182; BP diastolic 68–101
[2019-04-09] MEDS ORDERED: LISI10TA5 PO (04:26)
[2019-04-09] MEDS: DEXTROSE 50% WATER 50ML SYRINGE IV PRN (06:34)
[2019-04-09] MEDS: BLOOD SUGAR DIAGNOSTIC STRIP TEST SCH ×2 (07:11→12:40)
[2019-04-09 07:46] LABS: BASOPHILS % 0.5 % (0.0-2.0); EOSINOPHILS % 0.8 % (0.0-5.0); HEMATOCRIT. 23.4 % (42.0-52.0); HEMOGLOBIN. 7.9 g/dL (14.0-18.0); MEAN CORPUSCULAR HEMOGLOBIN 35.2 pg (28.0-32.0); MEAN CORPUSCULAR VOLUME 104.5 fL (80.0-94.0); MONOCYTES % 7.6 % (2.0-8.0); NEUTROPHILS % 60.1 % (40.0-76.0); PLATELET 338 x1000/uL (130-400); RED BLOOD CELL COUNT 2.24 mill/uL (4.7-6.1); RED CELL DISTRIBUTION WIDTH 16.2 % (11.6-14.6)
[2019-04-09] MEDS: INSULIN LISPRO 100 UNITS/ML SUBCUT SCH ×2 (08:10→13:10)
[2019-04-09] MEDS ORDERED: KETOROLAC 30MG/ML VIAL IV SCH (08:45)
[2019-04-09] MEDS ORDERED: LISINOPRIL 10MG TABLET PO SCH (09:00)
[2019-04-09] MEDS ORDERED: PAROXETINE HCL 10MG TABLET PO SCH (09:00)
[2019-04-09] MEDS: METOPROLOL TARTRATE 25MG TABLET PO SCH (10:00)
[2019-04-09] MEDS ORDERED: INSULIN GLARGINE UD 100 UNITS/ML SYR SUBCUT SCH (10:00)
[2019-04-09] MEDS ORDERED: CEFTRIAXONE SODIUM 1 G/VIAL IM SCH (11:00)
[2019-04-09] MEDS ORDERED: CYANOCOBALAMIN 1000MCG/ML VIAL IM NR (15:00)
== END 2019-04-09 17:20 | disposition home or self-care (01) | DRG 812 ==
LOC: ER 10:19 → 7WST 13:21 → ENRESERV 15:24
PROVIDERS: ADMIT Internal Medicine; ATTEND Internal Medicine
PROC: 30233N1 Transfusion of Nonautologous Red Blood Cells into Peripheral Vein, Percutaneous Approach (ICD-10-PCS; principal; 2019-04-08)
DX: D64.9 Anemia, unspecified (principal); Z84.1 Family history of disorders of kidney and ureter; I80.8 Phlebitis and thrombophlebitis of other sites; N18.9 Chronic kidney disease, unspecified; E11.22 Type 2 diabetes mellitus with diabetic chronic kidney disease; I12.9 Hypertensive chronic kidney disease with stage 1 through stage 4 chronic kidney disease, or unspecified chronic kidney disease; E53.8 Deficiency of other specified B group vitamins; D63.8 Anemia in other chronic diseases classified elsewhere; D75.89 Other specified diseases of blood and blood-forming organs; Z86.718 Personal history of other venous thrombosis and embolism; Z79.899 Other long term (current) drug therapy; Z79.01 Long term (current) use of anticoagulants; Z79.02 Long term (current) use of antithrombotics/antiplatelets; Z83.3 Family history of diabetes mellitus; Z82.49 Family history of ischemic heart disease and other diseases of the circulatory system
CPT/HCPCS: 36415; 73620; 80048; 82607; 82746; 82962; 83540; 83550; 86850; 86900; 86920; 96374; 96375; 99291; J0696; J1815; J1885; J2270; J3420; J7030; P9016

== ENCOUNTER 2019-06-17 22:14 | Inpatient (IN) | payer OTHER ==
[~2019-06-17] VITALS: Ht 190.5 cm; Wt 72.6 kg
[~2019-06-17 22:14] MED LIST changes: +APIX2.5T PO; -ASPI-1393 PO; +ASPI-1497 PO; +ATOR-2 PO; +FAMO20TA8 PO; +FLUO10TA3 PO; +INSNOV SUBCUT; -LISI-186 MT; +LISI10TA5 PO; +METO25TA6 PO
[2019-06-17] MEDS ORDERED: ASPIRIN 81MG TABLET PO ONE (23:15)
[2019-06-17 23:24] LABS: BASOPHILS % 0.3 % (0.0-2.0); EOSINOPHILS % 1.2 % (0.0-5.0); HEMATOCRIT. 26.1 % (42.0-52.0); HEMOGLOBIN. 8.7 g/dL (14.0-18.0); LYMPHOCYTES % 37.3 % (20.0-50.0); MEAN CORPUSCULAR HEMOGLOBIN 34.8 pg (28.0-32.0); MEAN PLATELET VOLUME 6.7 fl (7.4-10.4); MONOCYTES % 5.6 % (2.0-8.0); NEUTROPHILS % 55.6 % (40.0-76.0); PLATELET 304 x1000/uL (130-400); RED BLOOD CELL COUNT 2.51 mill/uL (4.7-6.1); RED CELL DISTRIBUTION WIDTH 14.6 % (11.6-14.6)
[2019-06-17 23:27] LABS: CHLORIDE 120 mEq/L (98-107)
[2019-06-18] MEDS ORDERED: IPRATROPIUM/ALBUTEROL 0.5-3(2.5)MG/3ML NEB HHN PRN (01:30)
[2019-06-18] MEDS ORDERED: ONDANSETRON HCL 4MG/2ML INJ IV PRN (01:30)
[2019-06-18] MEDS ORDERED: CLONIDINE 0.1MG TABLET PO PRN (01:30)
[2019-06-18] MEDS ORDERED: MAGNESIUM/ALUMINUM HYDROXIDE/SIMETHICONE 30ML UDC PO PRN (01:30)
[2019-06-18] MEDS ORDERED: DEXTROSE 50% WATER 50ML SYRINGE IV PRN (01:30)
[2019-06-18] MEDS ORDERED: ACETAMINOPHEN 325MG TABLET PO PRN (01:30)
[2019-06-18] MEDS ORDERED: DIPHENHYDRAMINE 50MG/ML VIAL IV PRN (01:30)
[2019-06-18 03:23] LABS: VITAMIN B12 SERUM 387 pg/mL (211-911)
[2019-06-18] MEDS: NITROGLYCERIN OINT 1GM/INCH UDPKT TD SCH ×3 (06:00→20:45)
[2019-06-18] MEDS: SODIUM CHLORIDE 0.9% INJ 3ML FLUSH IVF SCH ×3 (06:00→20:45)
[2019-06-18] MEDS: INSULIN LISPRO 100 UNITS/ML SUBCUT SCH ×6 (08:20→22:30)
[2019-06-18] MEDS: BLOOD SUGAR DIAGNOSTIC STRIP TEST SCH ×4 (08:38→20:44)
[2019-06-18] MEDS ORDERED: FAMOTIDINE 20MG TABLET PO SCH (09:00)
[2019-06-18] MEDS ORDERED: INSULIN LISPRO 100 UNITS/ML SUBCUT SCH (09:15)
[2019-06-18] MEDS: CLOPIDOGREL 75MG TABLET PO SCH (09:34)
[2019-06-18] MEDS: ASPIRIN 81MG EC TABLET PO SCH (09:34)
[2019-06-18] MEDS: PAROXETINE HCL 10MG TABLET PO SCH (09:34)
[2019-06-18] MEDS: LISINOPRIL 5MG TABLET PO SCH (09:35)
[2019-06-18] MEDS ORDERED: INSULIN GLARGINE UD 100 UNITS/ML SYR SUBCUT SCH (10:00)
[2019-06-18] MEDS: AMLODIPINE 5MG TABLET PO SCH ×2 (10:56→20:43)
[2019-06-18] MEDS: CYANOCOBALAMIN 1000MCG/ML VIAL IM SCH (11:33)
[2019-06-18 14:55] VITALS: BP 144/73
[2019-06-18 16:53] VITALS: BP 144/33
[2019-06-18] MEDS: APIXABAN 5 MG TABLET PO SCH (17:26)
[2019-06-18 19:45] LABS: *AMPHETAMINES SCREEN URINE NEGATIVE (NEGATIVE); *BARBITURATES SCREEN URINE NEGATIVE (NEGATIVE); *BENZODIAZEPINES SCREEN URINE NEGATIVE (NEGATIVE); *COCAINE SCREEN URINE NEGATIVE (NEGATIVE); METHADONE URINE SCREEN NEGATIVE (NEGATIVE); OPIATES URINE SCREEN NEGATIVE (NEGATIVE)
[2019-06-18 19:46] LABS: CANNABINOID URINE SCREEN PRESUMTIVE POSITIVE (NEGATIVE); PHENCYCLIDINE URINE SCREEN NEGATIVE (NEGATIVE)
[2019-06-18 20:00] VITALS: BP 147/85
[2019-06-18] MEDS: ATORVASTATIN CALCIUM 40MG TABLET PO SCH (20:43)
[2019-06-19] VITALS: BP 130/67
[2019-06-19 04:00] VITALS: BP 133/78
[2019-06-19] MEDS: NITROGLYCERIN OINT 1GM/INCH UDPKT TD SCH ×3 (06:03→21:44)
[2019-06-19] MEDS: SODIUM CHLORIDE 0.9% INJ 3ML FLUSH IVF SCH ×3 (06:03→21:44)
[2019-06-19] MEDS: BLOOD SUGAR DIAGNOSTIC STRIP TEST SCH ×4 (06:50→21:43)
[2019-06-19 07:00] LABS: BASOPHILS % 0.9 % (0.0-2.0); EOSINOPHILS % 1.2 % (0.0-5.0); HEMATOCRIT. 27.3 % (42.0-52.0); HEMOGLOBIN. 8.9 g/dL (14.0-18.0); LYMPHOCYTES % 32.7 % (20.0-50.0); MEAN CORPUSCULAR HEMOGLOBIN 34.3 pg (28.0-32.0); MEAN CORPUSCULAR VOLUME 105.4 fL (80.0-94.0); MEAN PLATELET VOLUME 7.1 fl (7.4-10.4); MONOCYTES % 5.7 % (2.0-8.0); NEUTROPHILS % 59.5 % (40.0-76.0); PLATELET 323 x1000/uL (130-400); RED BLOOD CELL COUNT 2.59 mill/uL (4.7-6.1); RED CELL DISTRIBUTION WIDTH 14.6 % (11.6-14.6)
[2019-06-19] MEDS: INSULIN LISPRO 100 UNITS/ML SUBCUT SCH ×4 (07:43→21:19)
[2019-06-19 08:00] VITALS: BP 130/104
[2019-06-19] MEDS: ASPIRIN 81MG EC TABLET PO SCH (08:44)
[2019-06-19] MEDS: AMLODIPINE 5MG TABLET PO SCH ×2 (08:44→21:43)
[2019-06-19] MEDS: CYANOCOBALAMIN 1000MCG/ML VIAL IM SCH (08:44)
[2019-06-19] MEDS: LISINOPRIL 5MG TABLET PO SCH (08:44)
[2019-06-19] MEDS: APIXABAN 5 MG TABLET PO SCH ×2 (08:44→18:01)
[2019-06-19] MEDS: CLOPIDOGREL 75MG TABLET PO SCH (08:45)
[2019-06-19] MEDS: PAROXETINE HCL 10MG TABLET PO SCH (08:45)
[2019-06-19] MEDS: INSULIN GLARGINE UD 100 UNITS/ML SYR SUBCUT SCH (11:24)
[2019-06-19 12:00] VITALS: BP 144/92
[2019-06-19 16:34] VITALS: BP 132/88
[2019-06-19] MEDS ORDERED: SODIUM POLYSTYRENE SULFONATE 15 G/60 ML BOT PO NR (17:00)
[2019-06-19] MEDS: CITRIC ACID/SODIUM CITRATE SOLN 30ML UDC PO SCH (18:01)
[2019-06-19] MEDS ORDERED: IRON SUCROSE COMPLEX 100 MG/5 ML ML IV SCH (19:00)
[2019-06-19 20:00] VITALS: BP 134/62
[2019-06-19] MEDS: ATORVASTATIN CALCIUM 40MG TABLET PO SCH (21:42)
[2019-06-19] MEDS ORDERED: INSULIN GLARGINE UD 100 UNITS/ML SYR SUBCUT SCH (22:00)
[2019-06-20] VITALS: BP 134/74
[2019-06-20 04:00] VITALS: BP 154/72
[2019-06-20] MEDS: SODIUM CHLORIDE 0.9% INJ 3ML FLUSH IVF SCH ×2 (06:02→13:49)
[2019-06-20] MEDS: NITROGLYCERIN OINT 1GM/INCH UDPKT TD SCH ×2 (06:03→13:50)
[2019-06-20] MEDS: BLOOD SUGAR DIAGNOSTIC STRIP TEST SCH ×2 (06:34→12:25)
[2019-06-20 06:47] LABS: PHOSPHORUS 3.3 mg/dL (2.5-4.9)
[2019-06-20 06:49] LABS: BASOPHILS % 0.6 % (0.0-2.0); EOSINOPHILS % 1.2 % (0.0-5.0); HEMATOCRIT. 25.4 % (42.0-52.0); HEMOGLOBIN. 8.6 g/dL (14.0-18.0); LYMPHOCYTES % 35.8 % (20.0-50.0); MEAN CORPUSCULAR HEMOGLOBIN 34.7 pg (28.0-32.0); MEAN CORPUSCULAR VOLUME 103.3 fL (80.0-94.0); MEAN PLATELET VOLUME 7.2 fl (7.4-10.4); MONOCYTES % 5.4 % (2.0-8.0); PLATELET 317 x1000/uL (130-400); RED BLOOD CELL COUNT 2.46 mill/uL (4.7-6.1); RED CELL DISTRIBUTION WIDTH 14.5 % (11.6-14.6)
[2019-06-20] MEDS: INSULIN LISPRO 100 UNITS/ML SUBCUT SCH ×2 (07:50→12:25)
[2019-06-20 08:00] VITALS: BP_SYST 150; BP_SYST 153; BP_DIAS 79; BP_DIAS 96
[2019-06-20] MEDS: CLOPIDOGREL 75MG TABLET PO SCH (09:00)
[2019-06-20] MEDS: CITRIC ACID/SODIUM CITRATE SOLN 30ML UDC PO SCH ×2 (09:00→13:05)
[2019-06-20] MEDS: AMLODIPINE 5MG TABLET PO SCH (09:01)
[2019-06-20] MEDS: LISINOPRIL 5MG TABLET PO SCH (09:01)
[2019-06-20] MEDS: CYANOCOBALAMIN 1000MCG/ML VIAL IM SCH (09:02)
[2019-06-20] MEDS: PAROXETINE HCL 10MG TABLET PO SCH (09:02)
[2019-06-20] MEDS: APIXABAN 5 MG TABLET PO SCH (09:02)
[2019-06-20] MEDS: ASPIRIN 81MG EC TABLET PO SCH (09:02)
[2019-06-20] MEDS: INSULIN GLARGINE UD 100 UNITS/ML SYR SUBCUT SCH (09:42)
[2019-06-20 10:49] LABS: BG BASE EXCESS -7.7 mmol/L (-2.0-2.0); BG CARBOXYHEMOGLOBIN 0.3 % (0.5-1.5); BG DEOXYHEMOGLOBIN 2.6 % (0.0-5.0); BG FRACTION INSPIRED OXYGEN 21; BG HCO3 ACT 17.3 mmol/L (22.0-26.0); BG METHEMOGLOBIN 0.3 % (0.0-1.5); BG OXYGEN SATURATION 97.4 % (92.0-98.5); BG OXYHEMOGLOBIN 96.8 % (94.0-97.0); BG PCO2 33.4 mmHg (35.0-45.0); BG PH 7.333 (7.350-7.450); BG PO2 111.9 mmHg (75.0-100.0); BG SAMPLE SITE RIGHT RADIAL; BG TOTAL HEMOGLOBIN 9.3 g/dL (12.0-18.0); BG VENT MODE ROOM AIR
[2019-06-20] MEDS ORDERED: MAGNESIUM 1 G PREMIX 100 ML IV SCH (12:00)
[2019-06-20 12:42] VITALS: BP 153/96
[2019-06-20 14:20] VITALS: BP 153/96
[2019-06-20] MEDS ORDERED: IRON SUCROSE COMPLEX 100 MG/5 ML ML IV SCH (14:30)
[2019-06-20] MEDS ORDERED: EPOETIN ALFA 10000UNITS/ML VIAL SUBCUT ONE (21:00)
== END 2019-06-20 15:43 | disposition home or self-care (01) | DRG 313 ==
LOC: ER 22:14 → 6WST 06-18 00:56 → ENRESERV 06-18 11:44
PROVIDERS: ADMIT Internal Medicine; ATTEND Internal Medicine
DX: R07.89 Other chest pain (principal); I13.0 Hypertensive heart and chronic kidney disease with heart failure and stage 1 through stage 4 chronic kidney disease, or unspecified chronic kidney disease; N17.9 Acute kidney failure, unspecified; N18.4 Chronic kidney disease, stage 4 (severe); E87.2 Acidosis; I31.3 Pericardial effusion (noninflammatory); I82.432 Acute embolism and thrombosis of left popliteal vein; D63.8 Anemia in other chronic diseases classified elsewhere; E11.22 Type 2 diabetes mellitus with diabetic chronic kidney disease; E11.65 Type 2 diabetes mellitus with hyperglycemia; E61.1 Iron deficiency; I25.10 Atherosclerotic heart disease of native coronary artery without angina pectoris; E78.00 Pure hypercholesterolemia, unspecified; E87.5 Hyperkalemia; G24.9 Dystonia, unspecified; I25.2 Old myocardial infarction; Z82.49 Family history of ischemic heart disease and other diseases of the circulatory system; Z79.01 Long term (current) use of anticoagulants; Z86.718 Personal history of other venous thrombosis and embolism; Z82.3 Family history of stroke; Z83.3 Family history of diabetes mellitus; Z91.14 Patient's other noncompliance with medication regimen; Z91.19 Patient's noncompliance with other medical treatment and regimen
CPT/HCPCS: 36415; 36600; 71045; 76770; 80048; 80053; 80061; 80305; 82375; 82607; 82805; 82962; 83735; 83880; 84100; 84484; 85025; 93005; 93306; 93970; 96372; 99291; J1815; J3420; J3475

== ENCOUNTER 2019-06-26 16:46 | Inpatient (IN) | payer MEDICAID, OTHER ==
[~2019-06-26] VITALS: Ht 193 cm; Wt 72.6 kg
[2019-06-26] MEDS ORDERED: ONDANSETRON HCL 4MG/2ML INJ IV STA (20:40)
[2019-06-26] MEDS ORDERED: SODIUM CHLORIDE 0.9% 1,000 ML IV ONE (20:40)
[2019-06-26] MEDS ORDERED: HYDRALAZINE 20MG/ML VIAL IV ONE (20:45)
[2019-06-26 21:04] LABS: BASOPHILS % 0.7 % (0.0-2.0); EOSINOPHILS % 0.8 % (0.0-5.0); HEMATOCRIT. 24.2 % (42.0-52.0); LYMPHOCYTES % 32.7 % (20.0-50.0); MEAN CORPUSCULAR HEMOGLOBIN 34.8 pg (28.0-32.0); MEAN CORPUSCULAR VOLUME 105.3 fL (80.0-94.0); MEAN PLATELET VOLUME 7.2 fl (7.4-10.4); MONOCYTES % 5.4 % (2.0-8.0); NEUTROPHILS % 60.4 % (40.0-76.0); PLATELET 312 x1000/uL (130-400); RED CELL DISTRIBUTION WIDTH 14.8 % (11.6-14.6)
[2019-06-26 21:10] LABS: CHLORIDE 118 mEq/L (98-107)
[2019-06-26 21:12] LABS: INR 0.9; PARTIAL THROMBOPLASTIN TIME 28.7 sec (23.4-31.0); PROTHROMBIN TIME 9.4 sec (9.6-11.0)
[2019-06-26 21:14] LABS: ETHANOL BLOOD < 10 mg/dL
[2019-06-26 21:50] LABS: CLARITY URINE CLEAR (CLEAR); COLOR URINE YELLOW (YELLOW); KETONES URINE NEGATIVE (NEGATIVE); LEUKOCYTE ESTERASE URINE NEGATIVE (NEGATIVE); NITRITE URINE NEGATIVE (NEGATIVE); OCCULT BLOOD URINE NEGATIVE (NEGATIVE); PROTEIN URINE 2+ (NEGATIVE); SPECIFIC GRAVITY URINE 1.013 (1.005-1.030); UROBILINOGEN URINE 0.2 E.U./dL (0.2-1.0)
[2019-06-26 22:00] LABS: *AMPHETAMINES SCREEN URINE NEGATIVE (NEGATIVE); *BARBITURATES SCREEN URINE NEGATIVE (NEGATIVE); *BENZODIAZEPINES SCREEN URINE NEGATIVE (NEGATIVE); *COCAINE SCREEN URINE NEGATIVE (NEGATIVE)
[2019-06-26 22:01] LABS: CANNABINOID URINE SCREEN PRESUMTIVE POSITIVE (NEGATIVE); METHADONE URINE SCREEN NEGATIVE (NEGATIVE); OPIATES URINE SCREEN NEGATIVE (NEGATIVE); PHENCYCLIDINE URINE SCREEN NEGATIVE (NEGATIVE)
[2019-06-27] MEDS ORDERED: ACETAMINOPHEN 325MG TABLET PO PRN (00:30)
[2019-06-27] MEDS ORDERED: DOCUSATE SODIUM 100MG CAPSULE PO PRN (00:30)
[2019-06-27] MEDS ORDERED: GUAIFENESIN 200MG/10ML SUGAR FREE UDC PO PRN (00:30)
[2019-06-27] MEDS ORDERED: MAGNESIUM/ALUMINUM HYDROXIDE/SIMETHICONE 30ML UDC PO PRN (00:30)
[2019-06-27] MEDS ORDERED: ONDANSETRON HCL 4MG/2ML INJ IV PRN (00:30)
[2019-06-27 03:02] LABS: TOTAL IRON BINDING CAPACITY 291 ug/dL (250-450)
[2019-06-27] MEDS: DEXTROSE 50% WATER 50ML SYRINGE IV PRN ×2 (03:21→17:56)
[2019-06-27] MEDS: CLONIDINE 0.1MG TABLET PO PRN ×2 (05:01→21:50)
[2019-06-27] MEDS ORDERED: SODIUM POLYSTYRENE SULFONATE 15 G/60 ML BOT PO ONE (08:45)
[2019-06-27] MEDS: INSULIN LISPRO 100 UNITS/ML SUBCUT SCH ×4 (09:31→21:52)
[2019-06-27] MEDS: BLOOD SUGAR DIAGNOSTIC STRIP TEST SCH ×4 (09:33→21:46)
[2019-06-27 10:10] VITALS: BP 156/91
[2019-06-27 11:00] VITALS: BP 156/91
[2019-06-27] MEDS ORDERED: APIXABAN 2.5 MG TABLET PO SCH (11:00)
[2019-06-27] MEDS ORDERED: INSULIN GLARGINE UD 100 UNITS/ML SYR SUBCUT SCH ×2 (12:00→22:00)
[2019-06-27 14:30] VITALS: BP 168/84
[2019-06-27] MEDS: PAROXETINE HCL 10MG TABLET PO SCH (14:42)
[2019-06-27] MEDS: ASPIRIN 81MG EC TABLET PO SCH (14:42)
[2019-06-27] MEDS: LISINOPRIL 5MG TABLET PO SCH (14:42)
[2019-06-27] MEDS: FERROUS SULFATE 325MG TABLET PO SCH ×2 (14:42→18:45)
[2019-06-27] MEDS: SODIUM CHLORIDE 0.9% INJ 3ML FLUSH IVF SCH ×2 (14:51→21:52)
[2019-06-27] MEDS: CLOPIDOGREL 75MG TABLET PO SCH (14:51)
[2019-06-27] MEDS: CYANOCOBALAMIN 1000MCG/ML VIAL IM SCH (15:01)
[2019-06-27 18:00] VITALS: BP 166/81
[2019-06-27 20:00] VITALS: BP 167/86
[2019-06-27] MEDS ORDERED: EPOETIN ALFA 10000UNITS/ML VIAL SUBCUT NR (21:00)
[2019-06-27] MEDS: APIXABAN 2.5 MG TABLET PO SCH (21:50)
[2019-06-27] MEDS: ATORVASTATIN CALCIUM 40MG TABLET PO SCH (21:50)
[2019-06-27] MEDS: AMLODIPINE 5MG TABLET PO SCH (21:51)
[2019-06-28] VITALS (12 sets, daily range): BP systolic 127–171; BP diastolic 75–98
[2019-06-28] MEDS: SODIUM CHLORIDE 0.9% INJ 3ML FLUSH IVF SCH ×3 (06:16→21:25)
[2019-06-28] MEDS: BLOOD SUGAR DIAGNOSTIC STRIP TEST SCH ×4 (06:44→20:23)
[2019-06-28 07:48] LABS: BASOPHILS % 0.8 % (0.0-2.0); HEMOGLOBIN. 7.5 g/dL (14.0-18.0); LYMPHOCYTES % 28.9 % (20.0-50.0); MEAN CORPUSCULAR HEMOGLOBIN 35.5 pg (28.0-32.0); MEAN CORPUSCULAR VOLUME 103.7 fL (80.0-94.0); MEAN PLATELET VOLUME 7.1 fl (7.4-10.4); MONOCYTES % 6.7 % (2.0-8.0); NEUTROPHILS % 62.6 % (40.0-76.0); PLATELET 294 x1000/uL (130-400); RED BLOOD CELL COUNT 2.12 mill/uL (4.7-6.1); RED CELL DISTRIBUTION WIDTH 14.4 % (11.6-14.6)
[2019-06-28] MEDS: INSULIN LISPRO 100 UNITS/ML SUBCUT SCH ×4 (07:50→20:38)
[2019-06-28 08:14] LABS: PHOSPHORUS 3.8 mg/dL (2.5-4.9)
[2019-06-28] MEDS: FERROUS SULFATE 325MG TABLET PO SCH ×3 (08:36→18:31)
[2019-06-28] MEDS: APIXABAN 2.5 MG TABLET PO SCH ×2 (08:36→18:31)
[2019-06-28] MEDS: CYANOCOBALAMIN 1000MCG/ML VIAL IM SCH (08:36)
[2019-06-28] MEDS: ASPIRIN 81MG EC TABLET PO SCH (08:36)
[2019-06-28] MEDS: AMLODIPINE 5MG TABLET PO SCH ×2 (08:37→20:41)
[2019-06-28] MEDS: LISINOPRIL 5MG TABLET PO SCH (08:37)
[2019-06-28] MEDS: CLOPIDOGREL 75MG TABLET PO SCH (08:37)
[2019-06-28] MEDS: PAROXETINE HCL 10MG TABLET PO SCH (08:37)
[2019-06-28] MEDS ORDERED: MAGNESIUM 2 G PREMIX 50 ML IV NR (11:00)
[2019-06-28] MEDS: INSULIN GLARGINE UD 100 UNITS/ML SYR SUBCUT SCH (11:31)
[2019-06-28] MEDS: CLONIDINE 0.1MG TABLET PO PRN (18:31)
[2019-06-28 18:52] LABS: VITAMIN B12 SERUM > 2000.0 pg/mL (211-911)
[2019-06-28] MEDS: ATORVASTATIN CALCIUM 40MG TABLET PO SCH (20:41)
[2019-06-29] VITALS (8 sets, daily range): BP systolic 135–161; BP diastolic 77–97
[2019-06-29 03:25] LABS: HEMATOCRIT 23.9 % (42.0-52.0); HEMOGLOBIN 8.2 g/dL (14.0-18.0)
[2019-06-29] MEDS: SODIUM CHLORIDE 0.9% INJ 3ML FLUSH IVF SCH ×2 (05:57→14:00)
[2019-06-29] MEDS: BLOOD SUGAR DIAGNOSTIC STRIP TEST SCH ×2 (06:21→12:19)
[2019-06-29 06:54] LABS: BASOPHILS % 0.6 % (0.0-2.0); EOSINOPHILS % 1.6 % (0.0-5.0); HEMATOCRIT. 24.5 % (42.0-52.0); HEMOGLOBIN. 8.3 g/dL (14.0-18.0); MEAN CORPUSCULAR HEMOGLOBIN 34.3 pg (28.0-32.0); MEAN PLATELET VOLUME 7.2 fl (7.4-10.4); MONOCYTES % 7.5 % (2.0-8.0); NEUTROPHILS % 53.3 % (40.0-76.0); PLATELET 284 x1000/uL (130-400); RED BLOOD CELL COUNT 2.42 mill/uL (4.7-6.1)
[2019-06-29 07:31] LABS: PHOSPHORUS 3.4 mg/dL (2.5-4.9)
[2019-06-29] MEDS: INSULIN LISPRO 100 UNITS/ML SUBCUT SCH ×2 (07:50→12:23)
[2019-06-29] MEDS: ASPIRIN 81MG EC TABLET PO SCH (08:28)
[2019-06-29] MEDS: FERROUS SULFATE 325MG TABLET PO SCH ×2 (08:28→12:37)
[2019-06-29] MEDS: PAROXETINE HCL 10MG TABLET PO SCH (08:28)
[2019-06-29] MEDS: APIXABAN 2.5 MG TABLET PO SCH (08:29)
[2019-06-29] MEDS: AMLODIPINE 5MG TABLET PO SCH (08:29)
[2019-06-29] MEDS: CYANOCOBALAMIN 1000MCG/ML VIAL IM SCH (08:29)
[2019-06-29] MEDS: CLOPIDOGREL 75MG TABLET PO SCH (08:29)
[2019-06-29] MEDS: LISINOPRIL 5MG TABLET PO SCH (08:29)
[2019-06-29 10:46] LABS: INR 0.9; PROTHROMBIN TIME 9.6 sec (9.6-11.0)
[2019-06-29] MEDS: INSULIN GLARGINE UD 100 UNITS/ML SYR SUBCUT SCH (12:20)
[2019-06-29] MEDS: CLONIDINE 0.1MG TABLET PO PRN (12:37)
[2019-06-29] MEDS ORDERED: AMLODIPINE 10MG TABLET PO SCH (21:00)
[2019-08-05] MEDS ORDERED: LABE200T28 PO (10:49)
[2019-08-05] MEDS ORDERED: AMLO10TA80 PO (10:49)
[2019-08-05] MEDS ORDERED: CLON0.2T12 PO (10:49)
== END 2019-06-29 16:05 | disposition home or self-care (01) | DRG 812 ==
LOC: ER 16:46 → 6WST 22:38 → EDBEDREQ 22:40 → EDBEDREQTM 22:40 → ENRESERV 06-27 07:32
PROVIDERS: ADMIT Internal Medicine; ATTEND Internal Medicine
PROC: 30233N1 Transfusion of Nonautologous Red Blood Cells into Peripheral Vein, Percutaneous Approach (ICD-10-PCS; principal; 2019-06-28)
DX: D64.9 Anemia, unspecified (principal); I13.0 Hypertensive heart and chronic kidney disease with heart failure and stage 1 through stage 4 chronic kidney disease, or unspecified chronic kidney disease; N17.9 Acute kidney failure, unspecified; E44.1 Mild protein-calorie malnutrition; N18.4 Chronic kidney disease, stage 4 (severe); I82.512 Chronic embolism and thrombosis of left femoral vein; I82.532 Chronic embolism and thrombosis of left popliteal vein; Z68.1 Body mass index [BMI] 19.9 or less, adult; I16.0 Hypertensive urgency; E11.22 Type 2 diabetes mellitus with diabetic chronic kidney disease; E53.8 Deficiency of other specified B group vitamins; E87.5 Hyperkalemia; S80.812A Abrasion, left lower leg, initial encounter; S80.811A Abrasion, right lower leg, initial encounter; Z60.2 Problems related to living alone; I50.9 Heart failure, unspecified; R74.0 Nonspecific elevation of levels of transaminase and lactic acid dehydrogenase [LDH]; F12.90 Cannabis use, unspecified, uncomplicated; S50.312A Abrasion of left elbow, initial encounter; S50.311A Abrasion of right elbow, initial encounter; X58.XXXA Exposure to other specified factors, initial encounter; Y93.89 Activity, other specified; Z82.49 Family history of ischemic heart disease and other diseases of the circulatory system; Y92.89 Other specified places as the place of occurrence of the external cause; Y99.8 Other external cause status; Z79.01 Long term (current) use of anticoagulants; Z83.3 Family history of diabetes mellitus; Z79.4 Long term (current) use of insulin; Z79.899 Other long term (current) drug therapy
CPT/HCPCS: 36415; 71045; 80048; 80053; 80305; 80320; 81003; 82607; 82962; 83540; 83550; 83735; 83880; 84100; 84484; 85014; 85018; 85025; 85049; 85384; 86850; 86900; 86920; 93005; 93970; 99285; J0360; J0885; J1815; J2405; J3420; J3475; J7030; J7040; P9016; G0480

== ENCOUNTER 2019-08-03 21:21 | Inpatient (IN) | payer OTHER ==
[~2019-08-03] VITALS: Ht 193 cm; Wt 87.1 kg
[2019-08-03 23:09] LABS: BASOPHILS % 0.8 % (0.0-2.0); EOSINOPHILS % 1.3 % (0.0-5.0); HEMATOCRIT. 22.4 % (42.0-52.0); HEMOGLOBIN. 7.5 g/dL (14.0-18.0); LYMPHOCYTES % 26.3 % (20.0-50.0); MEAN CORPUSCULAR HEMOGLOBIN 35.1 pg (28.0-32.0); MEAN CORPUSCULAR VOLUME 104.1 fL (80.0-94.0); MEAN PLATELET VOLUME 7.8 fl (7.4-10.4); MONOCYTES % 7.1 % (2.0-8.0); NEUTROPHILS % 64.5 % (40.0-76.0); PLATELET 345 x1000/uL (130-400); RED BLOOD CELL COUNT 2.15 mill/uL (4.7-6.1); RED CELL DISTRIBUTION WIDTH 16.9 % (11.6-14.6)
[2019-08-03 23:19] LABS: PROTHROMBIN TIME 10.9 sec (9.6-11.0)
[2019-08-03 23:26] LABS: CHLORIDE 120 mEq/L (98-107)
[2019-08-04 00:28] LABS: CLARITY URINE CLEAR (CLEAR); COLOR URINE YELLOW (YELLOW); KETONES URINE NEGATIVE (NEGATIVE); LEUKOCYTE ESTERASE URINE NEGATIVE (NEGATIVE); NITRITE URINE NEGATIVE (NEGATIVE); OCCULT BLOOD URINE 1+ (NEGATIVE); PROTEIN URINE 3+ (NEGATIVE); SPECIFIC GRAVITY URINE 1.013 (1.005-1.030); UROBILINOGEN URINE 0.2 E.U./dL (0.2-1.0)
[2019-08-04] MEDS ORDERED: SODIUM POLYSTYRENE SULFONATE 15 G/60 ML BOT PO SCH (00:30)
[2019-08-04] MEDS ORDERED: DEXTROSE 50% WATER 50ML SYRINGE IV ONE (00:30)
[2019-08-04] MEDS ORDERED: ALBUTEROL (0.083%) 2.5MG/3ML NEB HHN SCH (00:30)
[2019-08-04] MEDS ORDERED: SODIUM BICARBONATE 8.4% 1 MEQ/ML 50ML SYR IV SCH (00:30)
[2019-08-04] MEDS ORDERED: INSULIN REGULAR (HUMULIN R) 300UNITS/3ML IV SCH (00:30)
[2019-08-04] MEDS ORDERED: DEXTROSE 50% WATER 50ML SYRINGE IV SCH (00:30)
[2019-08-04] MEDS ORDERED: CLONIDINE 0.1MG TABLET PO SCH (02:30)
[2019-08-04 10:30] LABS: T4 FREE 0.76 ng/dL (0.76-1.46)
[2019-08-04] MEDS ORDERED: AMLODIPINE 5MG TABLET PO SCH (11:15)
[2019-08-04] MEDS ORDERED: ACETAMINOPHEN 650MG SUPP PR PRN ×2 (11:15)
[2019-08-04] MEDS ORDERED: GUAIFENESIN 200MG/10ML SUGAR FREE UDC PO PRN (11:15)
[2019-08-04] MEDS ORDERED: MAGNESIUM/ALUMINUM HYDROXIDE/SIMETHICONE 30ML UDC PO PRN (11:15)
[2019-08-04] MEDS ORDERED: NA PHOS,M-B/NA PHOS,DI-BA ENEMA 118ML PR PRN (11:15)
[2019-08-04] MEDS ORDERED: ONDANSETRON HCL 4MG/2ML INJ IV PRN (11:15)
[2019-08-04] MEDS ORDERED: ACETAMINOPHEN 650MG/20.3ML UDC GT PRN ×2 (11:15)
[2019-08-04] MEDS ORDERED: DEXTROSE 50% WATER 50ML SYRINGE IV PRN (11:15)
[2019-08-04] MEDS ORDERED: DOCUSATE SODIUM 100MG CAPSULE PO PRN (11:15)
[2019-08-04] MEDS ORDERED: METOPROLOL TARTRATE 25MG TABLET PO SCH (11:15)
[2019-08-04] MEDS ORDERED: ACETAMINOPHEN 325MG TABLET PO PRN ×2 (11:15)
[2019-08-04 11:47] LABS: CHLORIDE 118 mEq/L (98-107)
[2019-08-04] MEDS ORDERED: SODIUM BICARBONATE 75 MEQ in SODIUM CHLORIDE 0.45% 1,000 ML IV SCH (12:00)
[2019-08-04] MEDS: BLOOD SUGAR DIAGNOSTIC STRIP TEST SCH ×3 (13:00→20:09)
[2019-08-04] MEDS ORDERED: HYDRALAZINE HCL 50MG TABLET PO SCH (14:00)
[2019-08-04] MEDS ORDERED: AMLODIPINE 5MG TABLET PO NR (14:13)
[2019-08-04 14:15] VITALS: BP 210/113
[2019-08-04] MEDS: CLONIDINE 0.1MG TABLET PO PRN (14:55)
[2019-08-04] MEDS: SODIUM CHLORIDE 0.9% INJ 3ML FLUSH IVF SCH ×2 (14:55→21:16)
[2019-08-04] MEDS: INSULIN LISPRO 100 UNITS/ML SUBCUT SCH ×3 (14:57→21:11)
[2019-08-04] MEDS ORDERED: INSULIN GLARGINE UD 100 UNITS/ML SYR SUBCUT SCH (15:00)
[2019-08-04 16:00] VITALS: BP 194/104
[2019-08-04] MEDS ORDERED: NON FORMULARY PATIENT HOME MED XX SCH ×2 (16:45)
[2019-08-04] MEDS: CLONIDINE 0.2MG TABLET PO SCH (16:56)
[2019-08-04] MEDS: ASPIRIN 81MG TABLET PO SCH (16:56)
[2019-08-04] MEDS: FLUOXETINE HCL 10 MG CAPSULE PO SCH (17:00)
[2019-08-04] MEDS: APIXABAN 2.5 MG TABLET PO SCH (17:53)
[2019-08-04 17:58] VITALS: BP 181/100
[2019-08-04 18:45] VITALS: BP 176/100
[2019-08-04 20:00] VITALS: BP 143/77
[2019-08-04 20:29] LABS: CLARITY URINE CLEAR (CLEAR); COLOR URINE YELLOW (YELLOW); KETONES URINE NEGATIVE (NEGATIVE); LEUKOCYTE ESTERASE URINE NEGATIVE (NEGATIVE); NITRITE URINE NEGATIVE (NEGATIVE); OCCULT BLOOD URINE 1+ (NEGATIVE); PROTEIN URINE 2+ (NEGATIVE); SPECIFIC GRAVITY URINE 1.016 (1.005-1.030); UROBILINOGEN URINE 0.2 E.U./dL (0.2-1.0)
[2019-08-04] MEDS ORDERED: EPOETIN ALFA 10000UNITS/ML VIAL SUBCUT SCH (21:00)
[2019-08-04] MEDS ORDERED: METOPROLOL TARTRATE 50MG TABLET PO SCH (21:00)
[2019-08-04 21:02] LABS: *AMPHETAMINES SCREEN URINE NEGATIVE (NEGATIVE); *BARBITURATES SCREEN URINE NEGATIVE (NEGATIVE); *BENZODIAZEPINES SCREEN URINE NEGATIVE (NEGATIVE); *COCAINE SCREEN URINE NEGATIVE (NEGATIVE)
[2019-08-04 21:03] LABS: CANNABINOID URINE SCREEN PRESUMTIVE POSITIVE (NEGATIVE); METHADONE URINE SCREEN NEGATIVE (NEGATIVE); OPIATES URINE SCREEN NEGATIVE (NEGATIVE); PHENCYCLIDINE URINE SCREEN NEGATIVE (NEGATIVE)
[2019-08-04] MEDS: FAMOTIDINE 20MG TABLET PO SCH (21:08)
[2019-08-04] MEDS: ATORVASTATIN CALCIUM 40MG TABLET PO SCH (21:08)
[2019-08-04] MEDS: LABETALOL HCL 200MG TABLET PO SCH (21:09)
[2019-08-04] MEDS: INSULIN GLARGINE UD 100 UNITS/ML SYR SUBCUT SCH (21:11)
[2019-08-04 21:33] LABS: TOTAL IRON BINDING CAPACITY 288 ug/dL (250-450)
[2019-08-04 21:48] LABS: BASOPHILS % 0.5 % (0.0-2.0); EOSINOPHILS % 0.9 % (0.0-5.0); HEMATOCRIT. 22.4 % (42.0-52.0); HEMOGLOBIN. 7.6 g/dL (14.0-18.0); LYMPHOCYTES % 19.4 % (20.0-50.0); MEAN CORPUSCULAR HEMOGLOBIN 34.5 pg (28.0-32.0); MEAN CORPUSCULAR VOLUME 102.1 fL (80.0-94.0); MEAN PLATELET VOLUME 7.3 fl (7.4-10.4); MONOCYTES % 5.1 % (2.0-8.0); NEUTROPHILS % 74.1 % (40.0-76.0); PLATELET 319 x1000/uL (130-400); RED BLOOD CELL COUNT 2.19 mill/uL (4.7-6.1); RED CELL DISTRIBUTION WIDTH 17.1 % (11.6-14.6)
[2019-08-04 22:15] LABS: CREATINE KINASE MB FRACTION 2.9 ng/mL (0.5-3.6)
[2019-08-04 23:55] LABS: CREATINE KINASE MB FRACTION 2.8 ng/mL (0.5-3.6)
[2019-08-05] VITALS (10 sets, daily range): BP systolic 106–179; BP diastolic 82–105
[2019-08-05] MEDS: CLONIDINE 0.2MG TABLET PO SCH ×3 (01:00→16:27)
[2019-08-05] MEDS: CLONIDINE 0.1MG TABLET PO PRN (04:56)
[2019-08-05] MEDS: SODIUM CHLORIDE 0.9% INJ 3ML FLUSH IVF SCH ×3 (04:56→21:53)
[2019-08-05] MEDS: BLOOD SUGAR DIAGNOSTIC STRIP TEST SCH ×4 (05:01→21:00)
[2019-08-05 06:58] LABS: BASOPHILS % 0.7 % (0.0-2.0); EOSINOPHILS % 1.3 % (0.0-5.0); HEMOGLOBIN. 7.6 g/dL (14.0-18.0); LYMPHOCYTES % 29.5 % (20.0-50.0); MEAN CORPUSCULAR HEMOGLOBIN 35.1 pg (28.0-32.0); MEAN CORPUSCULAR VOLUME 101.1 fL (80.0-94.0); MEAN PLATELET VOLUME 7.1 fl (7.4-10.4); MONOCYTES % 6.3 % (2.0-8.0); NEUTROPHILS % 62.2 % (40.0-76.0); PLATELET 308 x1000/uL (130-400); RED BLOOD CELL COUNT 2.17 mill/uL (4.7-6.1); RED CELL DISTRIBUTION WIDTH 16.1 % (11.6-14.6)
[2019-08-05 07:39] LABS: CHLORIDE 114 mEq/L (98-107)
[2019-08-05 07:52] LABS: CREATINE KINASE 216 IU/L (39-308); CREATINE KINASE MB FRACTION 2.3 ng/mL (0.5-3.6); LDL CHOLESTEROL 80 mg/dL (5-100); PHOSPHORUS 3.4 mg/dL (2.5-4.9)
[2019-08-05 07:53] LABS: HDL CHOLESTEROL 92 mg/dL (40-59)
[2019-08-05] MEDS: INSULIN LISPRO 100 UNITS/ML SUBCUT SCH ×4 (08:10→21:00)
[2019-08-05] MEDS: FLUOXETINE HCL 10 MG CAPSULE PO SCH (08:36)
[2019-08-05] MEDS: ASPIRIN 81MG TABLET PO SCH (08:37)
[2019-08-05] MEDS: APIXABAN 2.5 MG TABLET PO SCH (08:38)
[2019-08-05] MEDS: AMLODIPINE 10MG TABLET PO SCH (08:42)
[2019-08-05] MEDS ORDERED: AMLODIPINE 10MG TABLET PO SCH (09:00)
[2019-08-05] MEDS ORDERED: INSULIN GLARGINE UD 100 UNITS/ML SYR SUBCUT SCH (10:00)
[2019-08-05] MEDS ORDERED: CLON0.2T12 PO (10:49)
[2019-08-05] MEDS ORDERED: LABE200T28 PO (10:49)
[2019-08-05] MEDS ORDERED: AMLO10TA80 PO (10:49)
[2019-08-05] MEDS: LABETALOL HCL 200MG TABLET PO SCH ×2 (12:06→21:54)
[2019-08-05] MEDS: INSULIN GLARGINE UD 100 UNITS/ML SYR SUBCUT SCH ×3 (21:53→22:04)
[2019-08-05] MEDS: FAMOTIDINE 20MG TABLET PO SCH (21:56)
[2019-08-05] MEDS: HYDRALAZINE HCL 50MG TABLET PO SCH (21:56)
[2019-08-05] MEDS: ATORVASTATIN CALCIUM 40MG TABLET PO SCH (21:56)
[2019-08-06] VITALS: BP 141/82
[2019-08-06] MEDS: CLONIDINE 0.2MG TABLET PO SCH ×2 (00:52→09:33)
[2019-08-06 04:00] VITALS: BP 143/89
[2019-08-06 06:39] LABS: BASOPHILS % 0.7 % (0.0-2.0); EOSINOPHILS % 1.4 % (0.0-5.0); HEMATOCRIT. 24.6 % (42.0-52.0); HEMOGLOBIN. 8.6 g/dL (14.0-18.0); LYMPHOCYTES % 29.7 % (20.0-50.0); MEAN CORPUSCULAR HEMOGLOBIN 34.1 pg (28.0-32.0); MEAN CORPUSCULAR VOLUME 97.9 fL (80.0-94.0); MONOCYTES % 6.1 % (2.0-8.0); NEUTROPHILS % 62.1 % (40.0-76.0); PLATELET 299 x1000/uL (130-400); RED BLOOD CELL COUNT 2.51 mill/uL (4.7-6.1); RED CELL DISTRIBUTION WIDTH 17.2 % (11.6-14.6)
[2019-08-06] MEDS: SODIUM CHLORIDE 0.9% INJ 3ML FLUSH IVF SCH (06:42)
[2019-08-06 06:54] LABS: PHOSPHORUS 4.1 mg/dL (2.5-4.9)
[2019-08-06 08:00] VITALS: BP 150/84
[2019-08-06] MEDS: INSULIN LISPRO 100 UNITS/ML SUBCUT SCH ×2 (08:10→12:18)
[2019-08-06] MEDS: BLOOD SUGAR DIAGNOSTIC STRIP TEST SCH (08:25)
[2019-08-06] MEDS ORDERED: RIVAROXABAN 15 MG TABLET PO SCH (09:00)
[2019-08-06] MEDS: ASPIRIN 81MG TABLET PO SCH (09:32)
[2019-08-06] MEDS: FLUOXETINE HCL 10 MG CAPSULE PO SCH (09:32)
[2019-08-06] MEDS: HYDRALAZINE HCL 50MG TABLET PO SCH (09:33)
[2019-08-06] MEDS: AMLODIPINE 10MG TABLET PO SCH (09:34)
[2019-08-06] MEDS: CITRIC ACID/SODIUM CITRATE SOLN 30ML UDC PO SCH ×2 (09:43→16:48)
[2019-08-06] MEDS: LABETALOL HCL 200MG TABLET PO SCH (09:44)
[2019-08-06] MEDS ORDERED: MAGNESIUM 4 G PREMIX 100 ML IV SCH (11:00)
[2019-08-06] MEDS ORDERED: INSULIN GLARGINE UD 100 UNITS/ML SYR SUBCUT SCH ×2 (11:00→22:00)
[2019-08-06 12:00] VITALS: BP 135/78
[2019-08-06 16:50] VITALS: BP 150/84
== END 2019-08-06 17:17 | disposition home or self-care (01) | DRG 640 ==
LOC: ER 21:21 → 7WST 08-04 02:21 → ENRESERV 08-04 12:40
PROVIDERS: ADMIT Family Medicine; ATTEND Family Medicine
PROC: 30233N1 Transfusion of Nonautologous Red Blood Cells into Peripheral Vein, Percutaneous Approach (ICD-10-PCS; principal; 2019-08-05)
DX: E87.5 Hyperkalemia (principal); N18.6 End stage renal disease; N17.9 Acute kidney failure, unspecified; I13.2 Hypertensive heart and chronic kidney disease with heart failure and with stage 5 chronic kidney disease, or end stage renal disease; E87.2 Acidosis; R74.0 Nonspecific elevation of levels of transaminase and lactic acid dehydrogenase [LDH]; E83.42 Hypomagnesemia; D63.8 Anemia in other chronic diseases classified elsewhere; E78.5 Hyperlipidemia, unspecified; E11.22 Type 2 diabetes mellitus with diabetic chronic kidney disease; I50.9 Heart failure, unspecified; Z86.718 Personal history of other venous thrombosis and embolism; Z79.4 Long term (current) use of insulin; Z99.2 Dependence on renal dialysis; Z83.3 Family history of diabetes mellitus; Z82.49 Family history of ischemic heart disease and other diseases of the circulatory system; Z79.02 Long term (current) use of antithrombotics/antiplatelets; Z79.01 Long term (current) use of anticoagulants; Z79.82 Long term (current) use of aspirin; Z79.899 Other long term (current) drug therapy
CPT/HCPCS: 36415; 71045; 76770; 80048; 80053; 80061; 80305; 81003; 82550; 82553; 82962; 83036; 83540; 83550; 83735; 83880; 84100; 84439; 84443; 84484; 85025; 85379; 86850; 86900; 86920; 93005; 93306; 93970; 94640; 96374; 99285; J0885; J1815; J3475; J3490; P9016

== ENCOUNTER 2019-11-30 21:33 | Inpatient (IN) | payer OTHER, MEDICAID ==
[~2019-11-30] VITALS: Ht 182.9 cm; Wt 78.0 kg
[~2019-11-30 21:33] MED LIST changes: +AMLO10TA80 PO; +CLON0.2T12 PO; -INSNPH SUBCUT; +LABE200T28 PO; -LISI10TA5 PO; -METO25TA6 PO
[2019-11-30 23:27] LABS: BASOPHILS % 1.1 % (0.0-2.0); EOSINOPHILS % 2.2 % (0.0-5.0); HEMATOCRIT. 21.9 % (42.0-52.0); HEMOGLOBIN. 7.4 g/dL (14.0-18.0); LYMPHOCYTES % 26.3 % (20.0-50.0); MEAN CORPUSCULAR HEMOGLOBIN 35.4 pg (28.0-32.0); MEAN CORPUSCULAR VOLUME 104.5 fL (80.0-94.0); MONOCYTES % 5.8 % (2.0-8.0); NEUTROPHILS % 64.6 % (40.0-76.0); PLATELET 444 x1000/uL (130-400); RED CELL DISTRIBUTION WIDTH 14.4 % (11.6-14.6)
[2019-11-30 23:33] LABS: CHLORIDE 116 mEq/L (98-107)
[2019-11-30 23:41] LABS: PARTIAL THROMBOPLASTIN TIME 28.5 sec (23.4-31.0); PROTHROMBIN TIME 10.3 sec (9.6-11.0)
[2019-11-30 23:42] LABS: T4 FREE 0.92 ng/dL (0.76-1.46)
[2019-12-01] MEDS ORDERED: SODIUM BICARBONATE 8.4% 1 MEQ/ML 50ML SYR IV ONE
[2019-12-01] MEDS ORDERED: CALCIUM CHLORIDE 1GM/10ML SYR IV ONE
[2019-12-01] MEDS ORDERED: INSULIN REGULAR (HUMULIN R) 300UNITS/3ML IV ONE
[2019-12-01] MEDS ORDERED: FUROSEMIDE 20MG/2ML VIAL IVP ONE (01:45)
[2019-12-01 02:00] LABS: CLARITY URINE CLEAR (CLEAR); COLOR URINE YELLOW (YELLOW); KETONES URINE TRACE (NEGATIVE); LEUKOCYTE ESTERASE URINE NEGATIVE (NEGATIVE); NITRITE URINE NEGATIVE (NEGATIVE); OCCULT BLOOD URINE NEGATIVE (NEGATIVE); PROTEIN URINE 2+ (NEGATIVE); SPECIFIC GRAVITY URINE 1.017 (1.005-1.030); UROBILINOGEN URINE 0.2 E.U./dL (0.2-1.0)
[2019-12-01] MEDS ORDERED: DEXTROSE 50% WATER 50ML SYRINGE IV ONE ×4 (02:23→03:00)
[2019-12-01] MEDS ORDERED: MORPHINE SULFATE 2 MG/ML CPJ (NOT FOR IM USE) IV ONE (04:00)
[2019-12-01] MEDS ORDERED: CLONIDINE 0.2MG TABLET PO ONE (04:00)
[2019-12-01] MEDS ORDERED: DEXTROSE 50% WATER 50ML SYRINGE IV PRN (09:45)
[2019-12-01] MEDS ORDERED: SODIUM POLYSTYRENE SULFONATE 15 G/60 ML BOT PO SCH (10:00)
[2019-12-01 10:20] LABS: BASOPHILS % 0.8 % (0.0-2.0); HEMATOCRIT. 28.5 % (42.0-52.0); HEMOGLOBIN. 9.7 g/dL (14.0-18.0); LYMPHOCYTES % 19.8 % (20.0-50.0); MEAN CORPUSCULAR HEMOGLOBIN 34.5 pg (28.0-32.0); MEAN CORPUSCULAR VOLUME 100.9 fL (80.0-94.0); MEAN PLATELET VOLUME 6.6 fl (7.4-10.4); MONOCYTES % 4.8 % (2.0-8.0); NEUTROPHILS % 73.6 % (40.0-76.0); PLATELET 495 x1000/uL (130-400); RED BLOOD CELL COUNT 2.83 mill/uL (4.7-6.1); RED CELL DISTRIBUTION WIDTH 14.9 % (11.6-14.6)
[2019-12-01 10:32] LABS: CHLORIDE 113 mEq/L (98-107)
[2019-12-01 10:38] LABS: PHOSPHORUS 2.8 mg/dL (2.5-4.9)
[2019-12-01] MEDS: SODIUM BICARBONATE 50 MEQ in SODIUM CHLORIDE 0.45% 1,000 ML IV SCH (11:26)
[2019-12-01] MEDS: BLOOD SUGAR DIAGNOSTIC STRIP TEST SCH ×3 (13:09→21:00)
[2019-12-01] MEDS: INSULIN LISPRO 100 UNITS/ML SUBCUT SCH ×3 (13:16→23:09)
[2019-12-01] MEDS ORDERED: LACTULOSE 20G/30ML UDC PO NR (14:24)
[2019-12-01] MEDS ORDERED: AMLODIPINE 10MG TABLET PO SCH (14:25)
[2019-12-01] MEDS ORDERED: FAMOTIDINE 20MG TABLET PO SCH (14:28)
[2019-12-01] MEDS: ASPIRIN 81MG EC TABLET PO SCH (14:42)
[2019-12-01] MEDS: CLONIDINE 0.2MG TABLET PO SCH ×2 (14:42→22:24)
[2019-12-01] MEDS: APIXABAN 2.5 MG TABLET PO SCH (14:50)
[2019-12-01] MEDS ORDERED: INSULIN GLARGINE UD 100 UNITS/ML SYR SUBCUT NR (15:15)
[2019-12-01] MEDS: HYDRALAZINE HCL 50MG TABLET PO SCH (15:50)
[2019-12-01 17:24] LABS: TOTAL IRON BINDING CAPACITY 246 ug/dL (250-450)
[2019-12-01] MEDS ORDERED: HYDRALAZINE 20MG/ML VIAL IV PRN (20:30)
[2019-12-01] MEDS ORDERED: AMLODIPINE 10MG TABLET PO NR (20:30)
[2019-12-01] MEDS ORDERED: CLONIDINE 0.1MG TABLET PO PRN (20:30)
[2019-12-01] MEDS ORDERED: EPOETIN ALFA 10000UNITS/ML VIAL SUBCUT NR (21:00)
[2019-12-01] MEDS: LABETALOL HCL 200MG TABLET PO SCH (22:55)
[2019-12-02] VITALS (12 sets, daily range): BP systolic 113–166; BP diastolic 57–100
[2019-12-02] MEDS: SODIUM BICARBONATE 50 MEQ in SODIUM CHLORIDE 0.45% 1,000 ML IV SCH ×3 (01:00→23:30)
[2019-12-02] MEDS: HYDROCODONE/ACETAMINOPHEN 5/325MG TABLET PO PRN ×2 (01:05→15:44)
[2019-12-02] MEDS ORDERED: LISI10TA5 PO (01:59)
[2019-12-02] MEDS ORDERED: TERB250T51 PO (01:59)
[2019-12-02] MEDS ORDERED: VIAG50 PO (01:59)
[2019-12-02] MEDS ORDERED: VENL37.55 PO (01:59)
[2019-12-02] MEDS ORDERED: SODI650T PO (01:59)
[2019-12-02] MEDS: HYDRALAZINE HCL 50MG TABLET PO SCH ×2 (06:28→17:18)
[2019-12-02] MEDS: CLONIDINE 0.2MG TABLET PO SCH ×3 (06:28→22:07)
[2019-12-02] MEDS: BLOOD SUGAR DIAGNOSTIC STRIP TEST SCH ×4 (06:42→21:00)
[2019-12-02 06:56] LABS: BASOPHILS % 0.9 % (0.0-2.0); EOSINOPHILS % 2.1 % (0.0-5.0); HEMOGLOBIN. 8.6 g/dL (14.0-18.0); MEAN CORPUSCULAR HEMOGLOBIN 34.9 pg (28.0-32.0); MEAN CORPUSCULAR VOLUME 101.1 fL (80.0-94.0); MEAN PLATELET VOLUME 6.7 fl (7.4-10.4); MONOCYTES % 5.3 % (2.0-8.0); NEUTROPHILS % 64.7 % (40.0-76.0); PLATELET 441 x1000/uL (130-400); RED BLOOD CELL COUNT 2.47 mill/uL (4.7-6.1); RED CELL DISTRIBUTION WIDTH 15.2 % (11.6-14.6)
[2019-12-02 07:46] LABS: CHLORIDE 109 mEq/L (98-107)
[2019-12-02 07:57] LABS: PHOSPHORUS 3.6 mg/dL (2.5-4.9)
[2019-12-02] MEDS ORDERED: PNEUMOCOCCAL 23-VAL P-SAC VAC 0.5 ML IM ONE (08:00)
[2019-12-02] MEDS: ASPIRIN 81MG EC TABLET PO SCH (08:15)
[2019-12-02] MEDS: LABETALOL HCL 200MG TABLET PO SCH ×2 (08:15→22:06)
[2019-12-02] MEDS: APIXABAN 2.5 MG TABLET PO SCH (08:16)
[2019-12-02] MEDS: AMLODIPINE 10MG TABLET PO SCH (08:16)
[2019-12-02] MEDS: INSULIN LISPRO 100 UNITS/ML SUBCUT SCH ×4 (08:17→23:09)
[2019-12-02] MEDS ORDERED: INSULIN GLARGINE UD 100 UNITS/ML SYR SUBCUT SCH (10:00)
[2019-12-02] MEDS: FAMOTIDINE 10MG TABLET PO SCH (10:35)
[2019-12-02] MEDS: INSULIN GLARGINE UD 100 UNITS/ML SYR SUBCUT SCH (10:36)
[2019-12-02] MEDS: MAGNESIUM OXIDE 400MG TABLET PO SCH ×2 (10:36→22:06)
[2019-12-03] VITALS (13 sets, daily range): BP systolic 128–159; BP diastolic 71–100
[2019-12-03] MEDS: SODIUM BICARBONATE 50 MEQ in SODIUM CHLORIDE 0.45% 1,000 ML IV SCH ×2 (05:00→18:32)
[2019-12-03] MEDS: BLOOD SUGAR DIAGNOSTIC STRIP TEST SCH ×4 (06:11→20:48)
[2019-12-03] MEDS: INSULIN LISPRO 100 UNITS/ML SUBCUT SCH ×4 (06:11→21:24)
[2019-12-03] MEDS: CLONIDINE 0.2MG TABLET PO SCH ×3 (06:16→21:27)
[2019-12-03] MEDS: HYDRALAZINE HCL 50MG TABLET PO SCH ×2 (06:16→17:01)
[2019-12-03 06:54] LABS: BASOPHILS % 0.6 % (0.0-2.0); EOSINOPHILS % 1.6 % (0.0-5.0); HEMATOCRIT. 24.4 % (42.0-52.0); HEMOGLOBIN. 8.4 g/dL (14.0-18.0); LYMPHOCYTES % 23.7 % (20.0-50.0); MEAN CORPUSCULAR HEMOGLOBIN 34.4 pg (28.0-32.0); MEAN CORPUSCULAR VOLUME 100.5 fL (80.0-94.0); MEAN PLATELET VOLUME 6.6 fl (7.4-10.4); MONOCYTES % 5.1 % (2.0-8.0); PLATELET 442 x1000/uL (130-400); RED BLOOD CELL COUNT 2.43 mill/uL (4.7-6.1); RED CELL DISTRIBUTION WIDTH 14.9 % (11.6-14.6)
[2019-12-03 07:18] LABS: HEPATITIS B SURFACE AB > 1000.0 mIU/mL
[2019-12-03 07:22] LABS: PHOSPHORUS 3.7 mg/dL (2.5-4.9)
[2019-12-03 07:29] LABS: HEPATITIS B SURFACE ANTIGEN NEGATIVE
[2019-12-03] MEDS: MAGNESIUM OXIDE 400MG TABLET PO SCH ×2 (10:48→21:25)
[2019-12-03] MEDS: LABETALOL HCL 200MG TABLET PO SCH ×2 (10:48→21:27)
[2019-12-03] MEDS: FAMOTIDINE 10MG TABLET PO SCH (10:48)
[2019-12-03] MEDS: AMLODIPINE 10MG TABLET PO SCH (10:48)
[2019-12-03] MEDS: ASPIRIN 81MG EC TABLET PO SCH (10:57)
[2019-12-03] MEDS: INSULIN GLARGINE UD 100 UNITS/ML SYR SUBCUT SCH (12:38)
[2019-12-03] MEDS: HYDROCODONE/ACETAMINOPHEN 5/325MG TABLET PO PRN (20:48)
[2019-12-04] VITALS (24 sets, daily range): BP systolic 137–169; BP diastolic 81–99
[2019-12-04] MEDS: CLONIDINE 0.2MG TABLET PO SCH ×3 (06:13→22:29)
[2019-12-04] MEDS: HYDRALAZINE HCL 50MG TABLET PO SCH ×2 (06:13→17:02)
[2019-12-04] MEDS: BLOOD SUGAR DIAGNOSTIC STRIP TEST SCH ×4 (06:44→20:46)
[2019-12-04 07:16] LABS: BASOPHILS % 0.5 % (0.0-2.0); EOSINOPHILS % 1.1 % (0.0-5.0); HEMOGLOBIN. 8.1 g/dL (14.0-18.0); LYMPHOCYTES % 18.7 % (20.0-50.0); MEAN CORPUSCULAR HEMOGLOBIN 35.4 pg (28.0-32.0); MEAN CORPUSCULAR VOLUME 100.8 fL (80.0-94.0); MEAN PLATELET VOLUME 6.7 fl (7.4-10.4); MONOCYTES % 3.8 % (2.0-8.0); NEUTROPHILS % 75.9 % (40.0-76.0); PLATELET 453 x1000/uL (130-400); RED BLOOD CELL COUNT 2.28 mill/uL (4.7-6.1); RED CELL DISTRIBUTION WIDTH 14.9 % (11.6-14.6)
[2019-12-04 07:35] LABS: PHOSPHORUS 3.4 mg/dL (2.5-4.9)
[2019-12-04] MEDS: INSULIN LISPRO 100 UNITS/ML SUBCUT SCH ×4 (09:37→20:45)
[2019-12-04] MEDS: LABETALOL HCL 200MG TABLET PO SCH ×2 (10:34→20:44)
[2019-12-04] MEDS: FAMOTIDINE 10MG TABLET PO SCH (10:35)
[2019-12-04] MEDS: AMLODIPINE 10MG TABLET PO SCH (10:36)
[2019-12-04] MEDS: ASPIRIN 81MG EC TABLET PO SCH (10:36)
[2019-12-04] MEDS: MAGNESIUM OXIDE 400MG TABLET PO SCH ×2 (10:36→20:45)
[2019-12-04] MEDS: INSULIN GLARGINE UD 100 UNITS/ML SYR SUBCUT SCH (10:37)
[2019-12-04] MEDS ORDERED: CEFAZOLIN 1000MG PREMIX 50 ML IV SCH (11:15)
[2019-12-04] MEDS ORDERED: FENTANYL CITRATE/PF 50MCG/ML 2ML VIAL ONE (11:16)
[2019-12-04] MEDS ORDERED: LIDOCAINE HCL 1% 20ML VIAL (Pyxis) INJ ONE (11:22)
[2019-12-04] MEDS ORDERED: SODIUM BICARBONATE 4% (2.4MEQ) 5ML VIAL IV ONE (11:22)
[2019-12-04] MEDS ORDERED: FENTANYL CITRATE/PF 50MCG/ML 2ML VIAL IV SCH (11:45)
[2019-12-04] MEDS ORDERED: HYDR-4135 PO (14:38)
[2019-12-04] MEDS ORDERED: HEPARIN SODIUM 1,000 UNIT/1ML VIAL IV NR (15:00)
[2019-12-04] MEDS: HYDROCODONE/ACETAMINOPHEN 5/325MG TABLET PO PRN (20:10)
[2019-12-04] MEDS ORDERED: EPOETIN ALFA 10000UNITS/ML VIAL SUBCUT SCH (21:00)
[2019-12-05] VITALS (12 sets, daily range): BP systolic 121–166; BP diastolic 75–102
[2019-12-05] MEDS: HYDRALAZINE HCL 50MG TABLET PO SCH ×2 (05:37→17:01)
[2019-12-05] MEDS: CLONIDINE 0.2MG TABLET PO SCH ×2 (05:37→13:51)
[2019-12-05] MEDS: BLOOD SUGAR DIAGNOSTIC STRIP TEST SCH ×4 (06:27→20:33)
[2019-12-05 07:05] LABS: BASOPHILS % 0.4 % (0.0-2.0); EOSINOPHILS % 1.3 % (0.0-5.0); HEMATOCRIT. 23.7 % (42.0-52.0); LYMPHOCYTES % 20.6 % (20.0-50.0); MEAN CORPUSCULAR HEMOGLOBIN 34.5 pg (28.0-32.0); MEAN CORPUSCULAR VOLUME 101.7 fL (80.0-94.0); MEAN PLATELET VOLUME 6.6 fl (7.4-10.4); MONOCYTES % 5.2 % (2.0-8.0); NEUTROPHILS % 72.5 % (40.0-76.0); PLATELET 478 x1000/uL (130-400); RED BLOOD CELL COUNT 2.33 mill/uL (4.7-6.1); RED CELL DISTRIBUTION WIDTH 14.9 % (11.6-14.6)
[2019-12-05 07:19] LABS: PHOSPHORUS 3.5 mg/dL (2.5-4.9)
[2019-12-05] MEDS: INSULIN LISPRO 100 UNITS/ML SUBCUT SCH ×4 (07:20→20:41)
[2019-12-05] MEDS: FAMOTIDINE 10MG TABLET PO SCH (08:21)
[2019-12-05] MEDS: MAGNESIUM OXIDE 400MG TABLET PO SCH ×2 (08:21→20:43)
[2019-12-05] MEDS: ASPIRIN 81MG EC TABLET PO SCH (08:21)
[2019-12-05] MEDS: AMLODIPINE 10MG TABLET PO SCH (08:22)
[2019-12-05] MEDS: LABETALOL HCL 200MG TABLET PO SCH ×2 (08:22→20:44)
[2019-12-05] MEDS: INSULIN GLARGINE UD 100 UNITS/ML SYR SUBCUT SCH (09:39)
[2019-12-05] MEDS: APIXABAN 2.5 MG TABLET PO SCH (20:43)
[2019-12-06] VITALS (10 sets, daily range): BP systolic 135–158; BP diastolic 73–90
[2019-12-06 05:10] LABS: BASOPHILS % 1.2 % (0.0-2.0); EOSINOPHILS % 1.5 % (0.0-5.0); HEMATOCRIT. 23.2 % (42.0-52.0); HEMOGLOBIN. 7.7 g/dL (14.0-18.0); MEAN CORPUSCULAR HEMOGLOBIN 34.4 pg (28.0-32.0); MEAN CORPUSCULAR VOLUME 103.1 fL (80.0-94.0); MEAN PLATELET VOLUME 6.9 fl (7.4-10.4); MONOCYTES % 6.1 % (2.0-8.0); NEUTROPHILS % 68.2 % (40.0-76.0); PLATELET 466 x1000/uL (130-400); RED BLOOD CELL COUNT 2.25 mill/uL (4.7-6.1)
[2019-12-06 05:25] LABS: PHOSPHORUS 3.6 mg/dL (2.5-4.9)
[2019-12-06] MEDS: CLONIDINE 0.2MG TABLET PO SCH ×2 (06:30→13:29)
[2019-12-06] MEDS: HYDRALAZINE HCL 50MG TABLET PO SCH (06:30)
[2019-12-06] MEDS: BLOOD SUGAR DIAGNOSTIC STRIP TEST SCH ×2 (06:31→11:05)
[2019-12-06] MEDS: INSULIN LISPRO 100 UNITS/ML SUBCUT SCH ×2 (07:46→11:38)
[2019-12-06] MEDS: MAGNESIUM OXIDE 400MG TABLET PO SCH (08:09)
[2019-12-06] MEDS: ASPIRIN 81MG EC TABLET PO SCH (08:10)
[2019-12-06] MEDS: AMLODIPINE 10MG TABLET PO SCH (08:10)
[2019-12-06] MEDS: FAMOTIDINE 10MG TABLET PO SCH (08:10)
[2019-12-06] MEDS: LABETALOL HCL 200MG TABLET PO SCH (08:10)
[2019-12-06] MEDS: APIXABAN 2.5 MG TABLET PO SCH (08:10)
[2019-12-06] MEDS: INSULIN GLARGINE UD 100 UNITS/ML SYR SUBCUT SCH (10:54)
== END 2019-12-06 14:05 | disposition home or self-care (01) | DRG 640 ==
LOC: ER 21:33 → MICUSO 12-01 01:26 → EDBEDREQTM 12-01 02:29 → EDBEDREQSVC 12-01 02:29 → EDBEDREQ 12-01 02:29 → CANRESERV 12-01 07:58 → ENRESERV 12-01 07:58 → EDBEDREQSVC 12-01 08:13 → ENRESERV 12-01 23:22 → 3WST 12-01 23:49
PROVIDERS: ADMIT Family Medicine; ATTEND Family Medicine
PROC: 30233N1 Transfusion of Nonautologous Red Blood Cells into Peripheral Vein, Percutaneous Approach (ICD-10-PCS; principal; 2019-12-01)
PROC: 5A1D70Z Performance of Urinary Filtration, Intermittent, Less than 6 Hours Per Day (ICD-10-PCS; 2019-12-02)
PROC: 0JH63XZ Insertion of Tunneled Vascular Access Device into Chest Subcutaneous Tissue and Fascia, Percutaneous Approach (ICD-10-PCS; 2019-12-04)
PROC: 02HV33Z Insertion of Infusion Device into Superior Vena Cava, Percutaneous Approach (ICD-10-PCS; 2019-12-04)
PROC: B5181ZA Fluoroscopy of Superior Vena Cava using Low Osmolar Contrast, Guidance (ICD-10-PCS; 2019-12-04)
PROC: B548ZZA Ultrasonography of Superior Vena Cava, Guidance (ICD-10-PCS; 2019-12-04)
PROC: 5A1D70Z Performance of Urinary Filtration, Intermittent, Less than 6 Hours Per Day (ICD-10-PCS; 2019-12-04)
PROC: 5A1D70Z Performance of Urinary Filtration, Intermittent, Less than 6 Hours Per Day (ICD-10-PCS; 2019-12-06)
DX: E87.5 Hyperkalemia (principal); N18.6 End stage renal disease; I13.2 Hypertensive heart and chronic kidney disease with heart failure and with stage 5 chronic kidney disease, or end stage renal disease; E44.0 Moderate protein-calorie malnutrition; N17.9 Acute kidney failure, unspecified; E87.2 Acidosis; I50.9 Heart failure, unspecified; E11.649 Type 2 diabetes mellitus with hypoglycemia without coma; E11.22 Type 2 diabetes mellitus with diabetic chronic kidney disease; E78.5 Hyperlipidemia, unspecified; R74.0 Nonspecific elevation of levels of transaminase and lactic acid dehydrogenase [LDH]; D63.1 Anemia in chronic kidney disease; L97.529 Non-pressure chronic ulcer of other part of left foot with unspecified severity; E11.40 Type 2 diabetes mellitus with diabetic neuropathy, unspecified; E11.51 Type 2 diabetes mellitus with diabetic peripheral angiopathy without gangrene; K21.9 Gastro-esophageal reflux disease without esophagitis; E11.621 Type 2 diabetes mellitus with foot ulcer; M54.10 Radiculopathy, site unspecified; F32.9 Major depressive disorder, single episode, unspecified; Z86.718 Personal history of other venous thrombosis and embolism; Z83.3 Family history of diabetes mellitus; Z82.49 Family history of ischemic heart disease and other diseases of the circulatory system
CPT/HCPCS: 36415; 36558; 71045; 72040; 73030; 76705; 76937; 77001; 80048; 80053; 81003; 82962; 83036; 83540; 83550; 83605; 83735; 83880; 84100; 84439; 84443; 84480; 84484; 85025; 86705; 86706; 86803; 86850; 86900; 86920; 87340; 90732; 93005; 99152; 99153; 99291; C1750; C1769; J0690; J0885; J1642; J1644; J1815; J1940; J2270; J3010; J3490; P9016; G0500; U0003-CS